=== PATIENT | female | born 1950 | race Caucasian/White ===

== ENCOUNTER 2022-12-17 22:53 | Inpatient (IN) | payer OTHER ==
[2022-12-17] MEDS ORDERED: Ipratropium/Albuterol 3 ML NEB NEB PRN (23:04)
[2022-12-17] MEDS ORDERED: Ondansetron PF 4 MG/2 ML Vial IVP PRN (23:16)
[2022-12-17] MEDS: Dextrose 5%-Lactated Ringers 1,000 ML IV SCH (23:49)
[2022-12-18] MEDS: Dextrose 5%-Lactated Ringers 1,000 ML IV SCH (00:47)
[2022-12-18] MEDS ORDERED: Lactated Ringer's 1,000 ML IV SCH (01:00)
[2022-12-18 04:15] LABS: ALT (SGPT) 14 U/L (8-55); AST (SGOT) 31 U/L (5-34); Albumin 3.5 g/dL (3.4-4.8); Alkaline Phosphatase 67 U/L (40-110); Anion Gap 16 mmol/L (10-20); BUN (Urea Nitrogen) 13 mg/dL (9.8-20.1); Bilirubin, Total 0.4 mg/dL (0.2-1.2); Calc. Creatinine Clearance 84 mL/min (70-130); Calcium 8.9 mg/dL (7.8-10.44); Carbon Dioxide 22 mmol/L (23-31); Chloride 104 mmol/L (98-107); Estimated GFR 95; Globulin 3.3 g/dL (2.4-3.5); Glucose 107 mg/dL (83-110); Potassium 3.7 mmol/L (3.5-5.1); Protein, Total 6.8 g/dL (5.8-8.1); Sodium 138 mmol/L (136-145)
[2022-12-18] MEDS ORDERED: Famotidine/PF 20 mg/2ml Vial SLOW IVP SCH (09:00)
[2022-12-18] MEDS: levETIRAcetam 500 MG/5 ML VIAL SLOW IVP SCH ×2 (09:07→20:24)
[2022-12-18] MEDS: Dexamethasone 4 mg/ml Vial SLOW IVP SCH ×3 (09:07→20:24)
[2022-12-18] MEDS: Famotidine 20 MG TAB PO SCH ×2 (09:08→20:24)
[2022-12-18] MEDS: Nicotine 14 MG PATCH TD SCH (11:16)
[2022-12-18] MEDS ORDERED: Magnevist 469MG/ML 20 ML VIAL ONE (12:13)
[2022-12-18] MEDS: Acetaminophen 325 MG TAB PO PRN (23:44)
[2022-12-19 06:28] LABS: #Lymphocytes 0.9 thou/uL (1.20-3.40); #Monocytes 0.4 thou/uL (0.11-0.59); #Neutrophils 7.2 thou/uL (1.40-6.50); %Basophils 0.1 % (0.0-1.0); %Eosinophils 0.2 % (0.0-10.0); %Lymphocytes 10.3 % (21.0-51.0); %Monocytes 4.9 % (0.0-10.0); %Neutrophils 84.6 % (42.0-75.0); Hemoglobin 13.5 g/dL (12.0-16.0); Mean Corpuscular HGB CONC 33.3 g/dL (32.0-36.0); Mean Corpuscular Hemoglobin 31.6 pg (27.0-31.0); Mean Corpuscular Volume 94.8 fl (78.0-98.0); Platelet Count 339 10x3/uL (130-400); RBC Distribution Width 11.9 % (11.5-14.5); Red Blood Cell (RBC) Count 4.26 mill/uL (4.20-5.40); White Blood Cell (WBC) Count 8.6 10x3/uL (4.8-10.8)
[2022-12-19 07:16] LABS: Anion Gap 12 mmol/L (10-20); BUN (Urea Nitrogen) 16 mg/dL (9.8-20.1); CK (CPK) 225 U/L (29-168); Calc. Creatinine Clearance 77 mL/min (70-130); Calcium 8.8 mg/dL (7.8-10.44); Carbon Dioxide 25 mmol/L (23-31); Chloride 106 mmol/L (98-107); Estimated GFR 93; Glucose 102 mg/dL (83-110); Potassium 3.7 mmol/L (3.5-5.1); Sodium 139 mmol/L (136-145)
[2022-12-19] MEDS: Dexamethasone 4 mg/ml Vial SLOW IVP SCH ×3 (08:58→21:31)
[2022-12-19] MEDS: Famotidine 20 MG TAB PO SCH ×2 (08:58→21:31)
[2022-12-19] MEDS: levETIRAcetam 500 MG/5 ML VIAL SLOW IVP SCH ×2 (08:59→21:32)
[2022-12-19] MEDS: Nicotine 14 MG PATCH TD SCH (10:52)
[2022-12-20 04:28] LABS: #Lymphocytes 0.8 thou/uL (1.20-3.40); #Monocytes 0.2 thou/uL (0.11-0.59); %Basophils 0.1 % (0.0-1.0); %Eosinophils 0.1 % (0.0-10.0); %Lymphocytes 10.2 % (21.0-51.0); %Monocytes 2.5 % (0.0-10.0); %Neutrophils 87.1 % (42.0-75.0); Hemoglobin 14.7 g/dL (12.0-16.0); Mean Corpuscular HGB CONC 33.6 g/dL (32.0-36.0); Mean Corpuscular Hemoglobin 31.8 pg (27.0-31.0); Mean Corpuscular Volume 94.7 fl (78.0-98.0); Mean Platelet Volume 7.4 fL (7.4-10.4); Platelet Count 322 10x3/uL (130-400); Red Blood Cell (RBC) Count 4.61 mill/uL (4.20-5.40)
[2022-12-20] MEDS: Famotidine 20 MG TAB PO SCH ×2 (09:34→22:11)
[2022-12-20] MEDS: Dexamethasone 4 mg/ml Vial SLOW IVP SCH ×3 (09:34→22:12)
[2022-12-20] MEDS: levETIRAcetam 500 MG/5 ML VIAL SLOW IVP SCH ×2 (09:34→22:12)
[2022-12-20] MEDS: Nicotine 14 MG PATCH TD SCH (09:35)
[2022-12-21 06:11] LABS: #Lymphocytes 0.7 thou/uL (1.20-3.40); #Monocytes 0.5 thou/uL (0.11-0.59); #Neutrophils 6.6 thou/uL (1.40-6.50); %Basophils 0.2 % (0.0-1.0); %Eosinophils 0.2 % (0.0-10.0); %Lymphocytes 9.3 % (21.0-51.0); %Monocytes 6.1 % (0.0-10.0); %Neutrophils 84.2 % (42.0-75.0); Hemoglobin 14.3 g/dL (12.0-16.0); Mean Corpuscular HGB CONC 32.9 g/dL (32.0-36.0); Mean Corpuscular Hemoglobin 31.2 pg (27.0-31.0); Mean Corpuscular Volume 94.8 fl (78.0-98.0); Platelet Count 329 10x3/uL (130-400); Red Blood Cell (RBC) Count 4.58 mill/uL (4.20-5.40); White Blood Cell (WBC) Count 7.9 10x3/uL (4.8-10.8)
[2022-12-21] MEDS: Senokot S 8.6-50 MG TAB PO PRN (06:18)
[2022-12-21] MEDS: levETIRAcetam 500 MG/5 ML VIAL SLOW IVP SCH ×2 (08:57→20:47)
[2022-12-21] MEDS: Famotidine 20 MG TAB PO SCH ×2 (08:57→20:47)
[2022-12-21] MEDS: Dexamethasone 4 mg/ml Vial SLOW IVP SCH ×3 (08:57→20:47)
[2022-12-21] MEDS: Nicotine 14 MG PATCH TD SCH (10:47)
[2022-12-22] MEDS: Calcium Carbonate 500 MG ChewTAB PO PRN (00:18)
[2022-12-22] MEDS: Melatonin 3 MG TAB PO PRN (00:18)
[2022-12-22] MEDS: Acetaminophen 325 MG TAB PO PRN (03:02)
[2022-12-22 08:42] LABS: #Lymphocytes 1.2 thou/uL (1.20-3.40); #Monocytes 0.5 thou/uL (0.11-0.59); #Neutrophils 6.7 thou/uL (1.40-6.50); %Basophils 0.5 % (0.0-1.0); %Eosinophils 0.1 % (0.0-10.0); %Lymphocytes 14.4 % (21.0-51.0); %Monocytes 6.1 % (0.0-10.0); %Neutrophils 78.9 % (42.0-75.0); Hemoglobin 14.1 g/dL (12.0-16.0); Mean Corpuscular HGB CONC 33.4 g/dL (32.0-36.0); Mean Corpuscular Hemoglobin 31.8 pg (27.0-31.0); Mean Platelet Volume 7.6 fL (7.4-10.4); Platelet Count 295 10x3/uL (130-400); Red Blood Cell (RBC) Count 4.44 mill/uL (4.20-5.40); White Blood Cell (WBC) Count 8.5 10x3/uL (4.8-10.8)
[2022-12-22 09:03] LABS: Anion Gap 11 mmol/L (10-20); BUN (Urea Nitrogen) 23 mg/dL (9.8-20.1); Calc. Creatinine Clearance 72 mL/min (70-130); Calcium 8.8 mg/dL (7.8-10.44); Carbon Dioxide 26 mmol/L (23-31); Chloride 105 mmol/L (98-107); Estimated GFR 92; Glucose 95 mg/dL (83-110); Potassium 3.9 mmol/L (3.5-5.1); Sodium 138 mmol/L (136-145)
[2022-12-22] MEDS ORDERED: Promethazine HCl 25 MG/ML VIAL IM PRN (10:31)
[2022-12-22] MEDS ORDERED: Ondansetron HCl/PF 4 MG/2 ML Vial IVP PRN (10:31)
[2022-12-22] MEDS ORDERED: fentaNYL PF 100 MCG/2 ML SYRINGE ONE (10:45)
[2022-12-22] MEDS ORDERED: Famotidine/PF 20 mg/2ml Vial ONE (10:45)
[2022-12-22] MEDS: Dexamethasone 4 mg/ml Vial SLOW IVP SCH ×3 (11:26→20:06)
[2022-12-22] MEDS: levETIRAcetam 500 MG/5 ML VIAL SLOW IVP SCH ×2 (11:26→20:05)
[2022-12-22] MEDS ORDERED: PROPOFOL 200 MG/20 ML VIAL ONE (11:37)
[2022-12-22] MEDS ORDERED: Lidocaine 1% PF 5 ML VIAL ONE (11:37)
[2022-12-22] MEDS ORDERED: Ondansetron PF 4 MG/2 ML Vial ONE (11:37)
[2022-12-22] MEDS ORDERED: Succinylcholine Chloride 100 MG/5 ML SYRINGE FS ONE (11:37)
[2022-12-22] MEDS ORDERED: PHENYLEPHRINE-NS 100 MCG/ML 10 ML SYRINGE ONE (11:37)
[2022-12-22] MEDS ORDERED: Tranexamic Acid 1,000 MG/10 ML VIAL ONE (11:49)
[2022-12-22] MEDS ORDERED: Morphine 4 MG/ML VIAL ONE (13:11)
[2022-12-22] MEDS ORDERED: Propofol 1,000 MG/100 ML VIAL IV ONE (13:11)
[2022-12-22] MEDS: Propofol 1,000 MG/100 ML VIAL IV PRN ×2 (13:15→20:12)
[2022-12-22] MEDS: Morphine 4 MG/ML VIAL SLOW IVP PRN (13:15)
[2022-12-22] MEDS ORDERED: Fentanyl BOLUS 250 ML IVPB PRN (13:30)
[2022-12-22] MEDS ORDERED: Ventilator Sedation Protocol 1 EACH FS SCH (13:30)
[2022-12-22] MEDS ORDERED: DISCONTINUE PREVIOUS NARCOTIC PAIN MEDICATIONS AND BENZODIAZEPINES FS SCH (13:30)
[2022-12-22] MEDS ORDERED: Propofol BOLUS 1,000 MG/100 ML VIAL IV PRN (13:30)
[2022-12-22] MEDS ORDERED: Lorazepam 2 MG/ML VIAL SLOW IVP PRN (13:30)
[2022-12-22] MEDS ORDERED: Fentanyl CADD 100 ML IV SCH (13:30)
[2022-12-22 14:32] LABS: Actual Bicarbonate (HCO3a) 27.8 mEq/L (22-28); Base Excess (BEa) 2.3 mEq/L (-2.0 to +3.0); CO2 Tension 46.3 mmHg (35.0-45.0); Calcium, Ionized (arterial) 1.18 mmol/L (1.12-1.30); Carboxyhemoglobin (COHb) 0.7 gm% (0.0-3.0); Hemoglobin (Hb) 15.2 g/dL (12.0-16.0); O2 Tension (PaO2), arterial 158.8 mmHg (> 70.0); Potassium - ABG Lab 4.22 mmol/L (3.70-5.30)
[2022-12-22 14:33] LABS: ALV-art Gradient 139.825 mmHg (0-20); Puncture Site LBA
[2022-12-22] MEDS: Famotidine 20 MG TAB PO SCH ×2 (15:42→19:28)
[2022-12-22] MEDS: Nicotine 14 MG PATCH TD SCH (15:52)
[2022-12-22] MEDS: Bacitracin 1 PK TOP SCH ×2 (15:52→20:06)
[2022-12-23 07:50] LABS: #Lymphocytes 1.2 thou/uL (1.20-3.40); #Monocytes 0.6 thou/uL (0.11-0.59); #Neutrophils 8.4 thou/uL (1.40-6.50); %Basophils 0.2 % (0.0-1.0); %Eosinophils 0.2 % (0.0-10.0); %Lymphocytes 11.8 % (21.0-51.0); %Monocytes 5.8 % (0.0-10.0); Mean Corpuscular HGB CONC 31.2 g/dL (32.0-36.0); Mean Corpuscular Hemoglobin 30.2 pg (27.0-31.0); Mean Corpuscular Volume 96.7 fl (78.0-98.0); Mean Platelet Volume 7.4 fL (7.4-10.4); Platelet Count 300 10x3/uL (130-400); RBC Distribution Width 12.1 % (11.5-14.5); Red Blood Cell (RBC) Count 4.63 mill/uL (4.20-5.40); White Blood Cell (WBC) Count 10.3 10x3/uL (4.8-10.8)
[2022-12-23 08:05] LABS: ALT (SGPT) 27 U/L (8-55); AST (SGOT) 13 U/L (5-34); Albumin 3.3 g/dL (3.4-4.8); Alkaline Phosphatase 58 U/L (40-110); Anion Gap 14 mmol/L (10-20); BUN (Urea Nitrogen) 21 mg/dL (9.8-20.1); Bilirubin, Total 0.4 mg/dL (0.2-1.2); Calc. Creatinine Clearance 0 mL/min (70-130); Calcium 8.9 mg/dL (7.8-10.44); Carbon Dioxide 26 mmol/L (23-31); Chloride 102 mmol/L (98-107); Estimated GFR 92; Globulin 2.9 g/dL (2.4-3.5); Glucose 96 mg/dL (83-110); Potassium 4.2 mmol/L (3.5-5.1); Protein, Total 6.2 g/dL (5.8-8.1); Sodium 138 mmol/L (136-145)
[2022-12-23] MEDS: Bacitracin 1 PK TOP SCH ×3 (08:28→21:17)
[2022-12-23] MEDS: Famotidine 20 MG TAB PO SCH ×2 (08:28→21:12)
[2022-12-23] MEDS: levETIRAcetam 500 MG/5 ML VIAL SLOW IVP SCH ×2 (08:29→21:17)
[2022-12-23] MEDS: Dexamethasone 4 mg/ml Vial SLOW IVP SCH ×3 (08:30→21:18)
[2022-12-23] MEDS: Nicotine 14 MG PATCH TD SCH (12:30)
[2022-12-23] MEDS ORDERED: Metoprolol Tartrate 5 MG/5 ML VIAL IVP PRN (12:56)
[2022-12-23] MEDS ORDERED: hydrALAZINE 20 MG/ML VIAL SLOW IVP PRN (13:00)
[2022-12-23] MEDS ORDERED: Lactated Ringer's 1,000 ML IV SCH (13:00)
[2022-12-23] MEDS: Morphine 4 MG/ML VIAL SLOW IVP PRN ×2 (13:03→21:20)
[2022-12-23 14:41] LABS: Actual Bicarbonate (HCO3v) 25 mEq/L (22-28); Base Excess 1.3 mEq/L (-2.0 to +3.0); Calcium, Ionized (venous) 1.05 mmol/L (1.16-1.32); Chloride (VBG) 106 mmol/L (98-106); Hemoglobin (Hb) 15.4 g/dL (11.7-16.1); Potassium (VBG) 3.68 mmol/L (3.70-5.30); Sodium 138.7 mmol/L (133-146); pH (venous) 7.46 (7.32-7.43)
[2022-12-23 14:47] LABS: Hemoglobin 14.8 g/dL (12.0-16.0); Mean Corpuscular HGB CONC 33.6 g/dL (32.0-36.0); Mean Corpuscular Hemoglobin 31.9 pg (27.0-31.0); Mean Corpuscular Volume 95.1 fl (78.0-98.0); Mean Platelet Volume 7.4 fL (7.4-10.4); Platelet Count 241 10x3/uL (130-400); RBC Distribution Width 12.2 % (11.5-14.5); Red Blood Cell (RBC) Count 4.64 mill/uL (4.20-5.40); White Blood Cell (WBC) Count 11.4 10x3/uL (4.8-10.8)
[2022-12-23 15:07] LABS: Band 7 % (5-11); Lymphocytes 1 % (21-51); MDiff Complete? YES; Monocytes 3 % (0-10); Neutrophil 89 % (42-75); Platelet Morphology Comment Appears Adequate; RBC Morphology Normal
[2022-12-23 15:18] LABS: Anion Gap 15 mmol/L (10-20); BUN (Urea Nitrogen) 20 mg/dL (9.8-20.1); Calc. Creatinine Clearance 0 mL/min (70-130); Calcium 8.2 mg/dL (7.8-10.44); Carbon Dioxide 21 mmol/L (23-31); Chloride 107 mmol/L (98-107); Estimated GFR 95; Glucose 88 mg/dL (83-110); Potassium 3.7 mmol/L (3.5-5.1); Sodium 139 mmol/L (136-145)
[2022-12-23] MEDS ORDERED: Labetalol HCl 100 MG/20 ML VIAL SLOW IVP PRN (15:44)
[2022-12-23] MEDS: Ketorolac Tromethamine 30 MG/ML VIAL IVP PRN (19:30)
[2022-12-23] MEDS: Ipratropium/Albuterol 3 ML NEB IPPB SCH ×2 (19:35→22:50)
[2022-12-24] MEDS: Morphine 4 MG/ML VIAL SLOW IVP PRN (00:22)
[2022-12-24 04:13] LABS: Hemoglobin 13.7 g/dL (12.0-16.0); Mean Corpuscular HGB CONC 32.2 g/dL (32.0-36.0); Mean Corpuscular Hemoglobin 30.8 pg (27.0-31.0); Mean Corpuscular Volume 95.6 fl (78.0-98.0); Mean Platelet Volume 7.6 fL (7.4-10.4); Platelet Count 216 10x3/uL (130-400); RBC Distribution Width 12.4 % (11.5-14.5); Red Blood Cell (RBC) Count 4.46 mill/uL (4.20-5.40); White Blood Cell (WBC) Count 22.2 10x3/uL (4.8-10.8)
[2022-12-24 04:45] LABS: Anion Gap 15 mmol/L (10-20); BUN (Urea Nitrogen) 22 mg/dL (9.8-20.1); Calc. Creatinine Clearance 0 mL/min (70-130); Calcium 8.8 mg/dL (7.8-10.44); Carbon Dioxide 27 mmol/L (23-31); Chloride 103 mmol/L (98-107); Estimated GFR 86; Glucose 103 mg/dL (83-110); Potassium 4.1 mmol/L (3.5-5.1); Sodium 141 mmol/L (136-145)
[2022-12-24 04:54] LABS: Band 11 % (5-11); Lymphocytes 6 % (21-51); MDiff Complete? YES; Monocytes 2 % (0-10); Myelocyte 1 % (0-0); Neutrophil 80 % (42-75); Platelet Morphology Comment Appears Adequate; RBC Morphology Normal
[2022-12-24] MEDS: Ketorolac Tromethamine 30 MG/ML VIAL IVP PRN (06:14)
[2022-12-24] MEDS: Ipratropium/Albuterol 3 ML NEB IPPB SCH ×4 (07:37→23:41)
[2022-12-24] MEDS: levETIRAcetam 500 MG/5 ML VIAL SLOW IVP SCH ×2 (09:01→20:09)
[2022-12-24] MEDS: Famotidine 20 MG TAB PO SCH ×2 (09:01→20:10)
[2022-12-24] MEDS: Senokot S 8.6-50 MG TAB PO PRN (09:02)
[2022-12-24] MEDS: Sodium Chloride 0.45% 1,000 ML IV SCH ×2 (09:03→21:43)
[2022-12-24] MEDS ORDERED: Polyethylene Glycol 3350 17 GM Packet PO PRN (11:00)
[2022-12-24] MEDS ORDERED: Polyethylene Glycol 3350 17 GM Packet PO SCH (11:15)
[2022-12-24] MEDS: Nicotine 14 MG PATCH TD SCH (11:34)
[2022-12-24] MEDS: traMADol HCl 50 MG TAB PO PRN (11:34)
[2022-12-24] MEDS: Dexamethasone 4 mg/ml Vial SLOW IVP SCH ×3 (11:36→23:14)
[2022-12-24] MEDS: Bacitracin 1 PK TOP SCH ×3 (11:37→20:08)
[2022-12-24] MEDS ORDERED: Adenosine 6 MG/2 ML VIAL ONE (12:09)
[2022-12-24] MEDS ORDERED: Diltiazem 125 MG in Sodium Chloride 0.9% 100 ML IVPB SCH (12:15)
[2022-12-24] MEDS ORDERED: Digoxin 0.5 MG/2 ML AMP SLOW IVP SCH ×3 (12:30→15:30)
[2022-12-24] MEDS ORDERED: Adenosine 6 MG/2 ML VIAL IVP SCH (12:30)
[2022-12-24 15:32] LABS: Magnesium 1.9 mg/dL (1.6-2.6); Phosphorus 1.7 mg/dL (2.3-4.7)
[2022-12-24] MEDS: Acetaminophen 325 MG TAB PO PRN (18:07)
[2022-12-24] MEDS: Digoxin 0.5 MG/2 ML AMP SLOW IVP SCH (20:08)
[2022-12-24] MEDS: Senokot S 8.6-50 MG TAB PO SCH (20:09)
[2022-12-25] MEDS: Digoxin 0.5 MG/2 ML AMP SLOW IVP SCH (02:23)
[2022-12-25 04:53] LABS: Hemoglobin 12.6 g/dL (12.0-16.0); Mean Corpuscular HGB CONC 33.7 g/dL (32.0-36.0); Mean Corpuscular Hemoglobin 32.1 pg (27.0-31.0); Mean Corpuscular Volume 95.4 fl (78.0-98.0); Mean Platelet Volume 7.7 fL (7.4-10.4); Platelet Count 191 10x3/uL (130-400); RBC Distribution Width 12.1 % (11.5-14.5); Red Blood Cell (RBC) Count 3.94 mill/uL (4.20-5.40); White Blood Cell (WBC) Count 18.8 10x3/uL (4.8-10.8)
[2022-12-25] MEDS: Dexamethasone 4 mg/ml Vial SLOW IVP SCH ×3 (05:04→18:22)
[2022-12-25 05:14] LABS: Digoxin 1.41 ng/mL (0.8-2.0)
[2022-12-25 05:26] LABS: ALT (SGPT) 14 U/L (8-55); AST (SGOT) 12 U/L (5-34); Albumin 2.8 g/dL (3.4-4.8); Alkaline Phosphatase 82 U/L (40-110); Anion Gap 12 mmol/L (10-20); BUN (Urea Nitrogen) 13 mg/dL (9.8-20.1); Bilirubin, Total 0.3 mg/dL (0.2-1.2); Calc. Creatinine Clearance 89 mL/min (70-130); Calcium 8.3 mg/dL (7.8-10.44); Carbon Dioxide 21 mmol/L (23-31); Chloride 107 mmol/L (98-107); Estimated GFR 96; Globulin 2.5 g/dL (2.4-3.5); Glucose 133 mg/dL (83-110); Magnesium 2.2 mg/dL (1.6-2.6); Phosphorus 2.2 mg/dL (2.3-4.7); Potassium 4.1 mmol/L (3.5-5.1); Protein, Total 5.3 g/dL (5.8-8.1); Sodium 136 mmol/L (136-145)
[2022-12-25 05:37] LABS: Band 16 % (5-11); Lymphocytes 1 % (21-51); MDiff Complete? YES; Monocytes 3 % (0-10); Neutrophil 80 % (42-75)
[2022-12-25] MEDS: Ipratropium/Albuterol 3 ML NEB IPPB SCH ×4 (07:45→23:59)
[2022-12-25] MEDS: levETIRAcetam 500 MG/5 ML VIAL SLOW IVP SCH ×2 (09:12→20:31)
[2022-12-25] MEDS: Senokot S 8.6-50 MG TAB PO SCH ×2 (09:14→20:31)
[2022-12-25] MEDS: Polyethylene Glycol 3350 17 GM Packet PO SCH (09:14)
[2022-12-25] MEDS: Bacitracin 1 PK TOP SCH ×3 (09:14→20:31)
[2022-12-25] MEDS: Famotidine 20 MG TAB PO SCH ×2 (09:14→20:31)
[2022-12-25] MEDS: Nicotine 14 MG PATCH TD SCH (11:48)
[2022-12-25] MEDS: Sodium Chloride 0.45% 1,000 ML IV SCH (11:49)
[2022-12-26] MEDS: Dexamethasone 4 mg/ml Vial SLOW IVP SCH ×4 (00:26→17:25)
[2022-12-26] MEDS: Melatonin 3 MG TAB PO PRN (02:09)
[2022-12-26 04:34] LABS: ALT (SGPT) 13 U/L (8-55); AST (SGOT) 10 U/L (5-34); Alkaline Phosphatase 71 U/L (40-110); Anion Gap 11 mmol/L (10-20); BUN (Urea Nitrogen) 11 mg/dL (9.8-20.1); Bilirubin, Total 0.3 mg/dL (0.2-1.2); Calc. Creatinine Clearance 92 mL/min (70-130); Calcium 8.7 mg/dL (7.8-10.44); Carbon Dioxide 24 mmol/L (23-31); Chloride 107 mmol/L (98-107); Estimated GFR 96; Globulin 2.8 g/dL (2.4-3.5); Glucose 139 mg/dL (83-110); Phosphorus 1.7 mg/dL (2.3-4.7); Potassium 3.9 mmol/L (3.5-5.1); Protein, Total 5.8 g/dL (5.8-8.1); Sodium 138 mmol/L (136-145)
[2022-12-26 04:51] LABS: Band 38 % (5-11); Hemoglobin 12.7 g/dL (12.0-16.0); MDiff Complete? YES; Mean Corpuscular Hemoglobin 31.1 pg (27.0-31.0); Mean Corpuscular Volume 94.5 fl (78.0-98.0); Mean Platelet Volume 8.2 fL (7.4-10.4); Neutrophil 61 % (42-75); Platelet Count 194 10x3/uL (130-400); Platelet Morphology Comment Appears Adequate; RBC Distribution Width 12.2 % (11.5-14.5); RBC Morphology Normal; Reactive Lymphocytes 1 % (0-10); Red Blood Cell (RBC) Count 4.06 mill/uL (4.20-5.40); White Blood Cell (WBC) Count 18.6 10x3/uL (4.8-10.8)
[2022-12-26] MEDS: Sodium Chloride 0.45% 1,000 ML IV SCH ×2 (05:23→15:31)
[2022-12-26] MEDS: Ipratropium/Albuterol 3 ML NEB IPPB SCH ×3 (08:05→20:15)
[2022-12-26] MEDS: Senokot S 8.6-50 MG TAB PO SCH ×2 (09:34→20:32)
[2022-12-26] MEDS: levETIRAcetam 500 MG/5 ML VIAL SLOW IVP SCH ×2 (09:34→20:39)
[2022-12-26] MEDS: Polyethylene Glycol 3350 17 GM Packet PO SCH (09:35)
[2022-12-26] MEDS: Famotidine 20 MG TAB PO SCH ×2 (09:35→20:31)
[2022-12-26] MEDS: Bacitracin 1 PK TOP SCH ×3 (09:35→20:36)
[2022-12-26] MEDS: Digoxin 0.125 MG TAB PO SCH (09:38)
[2022-12-26] MEDS: Nicotine 14 MG PATCH TD SCH (09:39)
[2022-12-26 13:16] LABS: Fungus Stain Final report (.)
[2022-12-26] MEDS: Calcium Carbonate 500 MG ChewTAB PO PRN (18:53)
[2022-12-27] MEDS: Dexamethasone 4 mg/ml Vial SLOW IVP SCH ×5 (00:02→23:07)
[2022-12-27] MEDS: Ipratropium/Albuterol 3 ML NEB IPPB SCH ×4 (01:21→18:30)
[2022-12-27] MEDS: Polyethylene Glycol 3350 17 GM Packet PO SCH (09:04)
[2022-12-27] MEDS: Digoxin 0.125 MG TAB PO SCH (09:05)
[2022-12-27] MEDS: Famotidine 20 MG TAB PO SCH ×2 (09:05→20:29)
[2022-12-27] MEDS: Bacitracin 1 PK TOP SCH ×3 (09:07→20:29)
[2022-12-27] MEDS: levETIRAcetam 500 MG/5 ML VIAL SLOW IVP SCH ×2 (09:08→20:29)
[2022-12-27] MEDS: Senokot S 8.6-50 MG TAB PO SCH ×2 (09:08→20:29)
[2022-12-27] MEDS: Sodium Chloride 0.45% 1,000 ML IV SCH (09:22)
[2022-12-27 10:56] LABS: Hemoglobin 13.8 g/dL (12.0-16.0); Large Platelets SLIGHT; Lymphocytes 5 % (21-51); MDiff Complete? YES; Mean Corpuscular HGB CONC 32.7 g/dL (32.0-36.0); Mean Corpuscular Hemoglobin 31.2 pg (27.0-31.0); Mean Corpuscular Volume 95.3 fl (78.0-98.0); Mean Platelet Volume 8.1 fL (7.4-10.4); Neutrophil 95 % (42-75); Platelet Count 229 10x3/uL (130-400); Platelet Morphology Comment Appears Adequate; Polychromasia SLIGHT = 2-3 cells (100X) (0-2/hpf); RBC Distribution Width 12.4 % (11.5-14.5); Red Blood Cell (RBC) Count 4.43 mill/uL (4.20-5.40); Vacuoles SLIGHT; White Blood Cell (WBC) Count 15.2 10x3/uL (4.8-10.8)
[2022-12-27] MEDS: Nicotine 14 MG PATCH TD SCH (12:24)
[2022-12-27] MEDS: Ketorolac Tromethamine 30 MG/ML VIAL IVP PRN (12:24)
[2022-12-27] MEDS: Calcium Carbonate 500 MG ChewTAB PO PRN ×2 (12:34→23:07)
[2022-12-27 13:49] LABS: #Lymphocytes 0.6 thou/uL (1.20-3.40); #Monocytes 0.9 thou/uL (0.11-0.59); #Neutrophils 15.2 thou/uL (1.40-6.50); %Basophils 0.1 % (0.0-1.0); %Lymphocytes 3.3 % (21.0-51.0); %Monocytes 5.5 % (0.0-10.0); Hemoglobin 13.2 g/dL (12.0-16.0); Mean Corpuscular HGB CONC 33.1 g/dL (32.0-36.0); Mean Corpuscular Hemoglobin 31.6 pg (27.0-31.0); Mean Corpuscular Volume 95.5 fl (78.0-98.0); Mean Platelet Volume 8.4 fL (7.4-10.4); Platelet Count 218 10x3/uL (130-400); RBC Distribution Width 12.3 % (11.5-14.5); Red Blood Cell (RBC) Count 4.19 mill/uL (4.20-5.40); White Blood Cell (WBC) Count 16.7 10x3/uL (4.8-10.8)
[2022-12-27 14:02] LABS: Anion Gap 15 mmol/L (10-20); BUN (Urea Nitrogen) 13 mg/dL (9.8-20.1); Calc. Creatinine Clearance 82 mL/min (70-130); Carbon Dioxide 25 mmol/L (23-31); Chloride 105 mmol/L (98-107); Estimated GFR 94; Glucose 107 mg/dL (83-110); Potassium 3.8 mmol/L (3.5-5.1); Sodium 141 mmol/L (136-145)
[2022-12-28] MEDS: Ipratropium/Albuterol 3 ML NEB IPPB SCH ×4 (01:00→19:18)
[2022-12-28] MEDS: Sodium Chloride 0.45% 1,000 ML IV SCH ×3 (02:44→21:56)
[2022-12-28] MEDS: Dexamethasone 4 mg/ml Vial SLOW IVP SCH ×4 (05:52→23:27)
[2022-12-28] MEDS: Senokot S 8.6-50 MG TAB PO SCH ×2 (09:51→21:57)
[2022-12-28] MEDS: Polyethylene Glycol 3350 17 GM Packet PO SCH (09:51)
[2022-12-28] MEDS: Digoxin 0.125 MG TAB PO SCH (09:52)
[2022-12-28] MEDS: Famotidine 20 MG TAB PO SCH ×2 (09:52→21:33)
[2022-12-28] MEDS: Bacitracin 1 PK TOP SCH ×3 (09:54→21:33)
[2022-12-28] MEDS: levETIRAcetam 500 MG/5 ML VIAL SLOW IVP SCH ×2 (09:56→21:34)
[2022-12-28] MEDS: Nicotine 14 MG PATCH TD SCH (12:28)
[2022-12-28 12:48] LABS: Hemoglobin 13.2 g/dL (12.0-16.0); Mean Corpuscular HGB CONC 31.8 g/dL (32.0-36.0); Mean Corpuscular Hemoglobin 30.4 pg (27.0-31.0); Mean Corpuscular Volume 95.7 fl (78.0-98.0); Mean Platelet Volume 8.1 fL (7.4-10.4); Platelet Count 239 10x3/uL (130-400); RBC Distribution Width 12.3 % (11.5-14.5); Red Blood Cell (RBC) Count 4.35 mill/uL (4.20-5.40)
[2022-12-28 13:03] LABS: Anion Gap 14 mmol/L (10-20); BUN (Urea Nitrogen) 12 mg/dL (9.8-20.1); Calc. Creatinine Clearance 94 mL/min (70-130); Calcium 8.8 mg/dL (7.8-10.44); Carbon Dioxide 23 mmol/L (23-31); Chloride 105 mmol/L (98-107); Estimated GFR 97; Glucose 129 mg/dL (83-110); Sodium 138 mmol/L (136-145)
[2022-12-28 13:06] LABS: Band 10 % (5-11); Lymphocytes 7 % (21-51); MDiff Complete? YES; Monocytes 2 % (0-10); Neutrophil 81 % (42-75); Platelet Morphology Comment Appears Adequate; RBC Morphology Normal; Toxic Granulation SLIGHT
[2022-12-28] MEDS: Ketorolac Tromethamine 30 MG/ML VIAL IVP PRN (16:17)
[2022-12-29] MEDS: Ipratropium/Albuterol 3 ML NEB IPPB SCH ×5 (01:15→23:26)
[2022-12-29] MEDS: Dexamethasone 4 mg/ml Vial SLOW IVP SCH (05:22)
[2022-12-29] MEDS: Sodium Chloride 0.45% 1,000 ML IV SCH ×2 (05:26→22:33)
[2022-12-29] MEDS ORDERED: EPINEPHrine 1 MG/ML AMP ONE (06:57)
[2022-12-29] MEDS ORDERED: Thrombin 5000 UNITS/5 ML VIAL ONE (06:57)
[2022-12-29] MEDS ORDERED: Lidocaine 1% (PF) 30 ML VIAL ONE (06:57)
[2022-12-29] MEDS ORDERED: Bacitracin Zinc Ointment 30 gm TUBE ONE (06:57)
[2022-12-29] MEDS ORDERED: Famotidine/PF 20 mg/2ml Vial ONE (06:58)
[2022-12-29] MEDS ORDERED: Phenylephrine 10 MG/ML VIAL ONE (07:06)
[2022-12-29] MEDS ORDERED: Lidocaine 1% PF 5 ML VIAL ONE ×2 (07:17→07:20)
[2022-12-29] MEDS ORDERED: ePHEDrine 50 MG/ML VIAL ONE (07:20)
[2022-12-29] MEDS ORDERED: Fentanyl 100 MCG/2 ML VIAL ONE (07:20)
[2022-12-29] MEDS ORDERED: PROPOFOL 200 MG/20 ML VIAL ONE (07:20)
[2022-12-29] MEDS ORDERED: Ondansetron PF 4 MG/2 ML Vial ONE (07:20)
[2022-12-29] MEDS ORDERED: Dexamethasone 20 MG/5 ML VIAL ONE (07:20)
[2022-12-29] MEDS ORDERED: PHENYLEPHRINE-NS 100 MCG/ML 10 ML SYRINGE ONE (07:20)
[2022-12-29] MEDS ORDERED: Rocuronium Bromide 10 MG/ML (10ML VIAL) ONE (07:20)
[2022-12-29] MEDS ORDERED: CEFAZOLIN 2 GM VIAL ONE (07:25)
[2022-12-29] MEDS ORDERED: Sodium Chloride 0.9% 100 ML ONE (07:29)
[2022-12-29] MEDS ORDERED: MINERAL OIL/WHITE PETROLATUM 3.5 GM TUBE ONE (08:17)
[2022-12-29] MEDS ORDERED: fentaNYL PF 100 MCG/2 ML SYRINGE ONE ×2 (08:25→09:21)
[2022-12-29] MEDS ORDERED: manNITOL 20% 500 ML ONE (08:41)
[2022-12-29] MEDS ORDERED: Promethazine HCl 25 MG/ML VIAL IM PRN (09:42)
[2022-12-29] MEDS ORDERED: PACU-Morphine 4MG/ML VIAL SLOW IVP PRN (09:42)
[2022-12-29] MEDS ORDERED: SUGAMMADEX SODIUM 200 MG/2 ML VIAL ONE (09:57)
[2022-12-29] MEDS: Digoxin 0.125 MG TAB PO SCH (14:26)
[2022-12-29] MEDS: Bacitracin 1 PK TOP SCH ×3 (14:26→19:30)
[2022-12-29] MEDS: Famotidine 20 MG TAB PO SCH (14:27)
[2022-12-29] MEDS: Senokot S 8.6-50 MG TAB PO SCH ×2 (14:27→19:31)
[2022-12-29] MEDS: Polyethylene Glycol 3350 17 GM Packet PO SCH (14:27)
[2022-12-29] MEDS: Nicotine 14 MG PATCH TD SCH (14:28)
[2022-12-29] MEDS: Sodium Chloride 0.9% 1,000 ML IV SCH (14:28)
[2022-12-29] MEDS ORDERED: Electrolyte Replacement Protocol FS SCH (14:45)
[2022-12-29] MEDS: levETIRAcetam 500 MG/5 ML VIAL SLOW IVP SCH (14:55)
[2022-12-29] MEDS: CEFAZOLIN 2 GM in Sodium Chloride 0.9% 100 ML IVPB SCH ×4 (15:44→22:35)
[2022-12-29] MEDS: Dexamethasone 4 MG TAB PO SCH (15:49)
[2022-12-29] MEDS: Phenytoin Extended Release 100 MG CAP PO SCH (19:30)
[2022-12-29] MEDS: Melatonin 3 MG TAB PO PRN (19:31)
[2022-12-29] MEDS: Acetaminophen 325 MG TAB PO PRN (19:32)
[2022-12-29] MEDS: Calcium Carbonate 500 MG ChewTAB PO PRN (22:31)
[2022-12-30] MEDS: Sodium Chloride 0.9% 1,000 ML IV SCH ×3 (00:51→23:24)
[2022-12-30 04:28] LABS: ALT (SGPT) 14 U/L (8-55); AST (SGOT) 13 U/L (5-34); Albumin 2.3 g/dL (3.4-4.8); Alkaline Phosphatase 60 U/L (40-110); Anion Gap 10 mmol/L (10-20); BUN (Urea Nitrogen) 11 mg/dL (9.8-20.1); Bilirubin, Total 0.3 mg/dL (0.2-1.2); Calc. Creatinine Clearance 96 mL/min (70-130); Carbon Dioxide 23 mmol/L (23-31); Chloride 107 mmol/L (98-107); Estimated GFR 98; Globulin 2.7 g/dL (2.4-3.5); Glucose 112 mg/dL (83-110); Phosphorus 2.4 mg/dL (2.3-4.7); Potassium 4.1 mmol/L (3.5-5.1); Sodium 136 mmol/L (136-145)
[2022-12-30 04:36] LABS: Band 18 % (5-11); Hemoglobin 12.8 g/dL (12.0-16.0); Lymphocytes 5 % (21-51); MDiff Complete? YES; Mean Corpuscular HGB CONC 32.7 g/dL (32.0-36.0); Mean Corpuscular Hemoglobin 31.9 pg (27.0-31.0); Mean Corpuscular Volume 97.5 fl (78.0-98.0); Mean Platelet Volume 8.2 fL (7.4-10.4); Monocytes 2 % (0-10); Neutrophil 75 % (42-75); Platelet Count 204 10x3/uL (130-400); Platelet Morphology Comment Appears Adequate; RBC Distribution Width 12.8 % (11.5-14.5); RBC Morphology Normal; Red Blood Cell (RBC) Count 4.03 mill/uL (4.20-5.40); White Blood Cell (WBC) Count 16.3 10x3/uL (4.8-10.8)
[2022-12-30] MEDS: Ipratropium/Albuterol 3 ML NEB IPPB SCH ×3 (08:05→18:51)
[2022-12-30] MEDS ORDERED: Magnesium 2 GM/50 ML(in water) 2 GM in Premix Bag 1 BAG IVPB SCH (08:15)
[2022-12-30] MEDS: Polyethylene Glycol 3350 17 GM Packet PO SCH (08:21)
[2022-12-30] MEDS: traMADol HCl 50 MG TAB PO PRN ×2 (08:22→20:36)
[2022-12-30] MEDS: Senokot S 8.6-50 MG TAB PO SCH ×2 (08:23→20:36)
[2022-12-30] MEDS: Dexamethasone 4 MG TAB PO SCH ×2 (08:24→17:35)
[2022-12-30] MEDS: PHOS-NAK 1 PKT PACK PO SCH ×2 (08:25→14:14)
[2022-12-30] MEDS: Bacitracin 1 PK TOP SCH ×3 (08:26→20:36)
[2022-12-30] MEDS: Sodium Chloride 0.45% 1,000 ML IV SCH (08:27)
[2022-12-30] MEDS: Ondansetron ODT 4 MG TAB PO PRN (08:34)
[2022-12-30] MEDS: Digoxin 0.125 MG TAB PO SCH (08:35)
[2022-12-30] MEDS: Benzonatate 100 MG CAP PO PRN (08:40)
[2022-12-30] MEDS: Morphine 4 MG/ML VIAL SLOW IVP PRN (09:25)
[2022-12-30] MEDS: Nicotine 14 MG PATCH TD SCH (09:31)
[2022-12-30] MEDS: Calcium Carbonate 500 MG ChewTAB PO PRN ×2 (09:31→20:35)
[2022-12-30] MEDS: Phenytoin Extended Release 100 MG CAP PO SCH (20:35)
[2022-12-30] MEDS: Acetaminophen 325 MG TAB PO PRN (22:51)
[2022-12-30] MEDS: Melatonin 3 MG TAB PO PRN (22:52)
[2022-12-31] MEDS: Ipratropium/Albuterol 3 ML NEB IPPB SCH ×4 (01:26→19:29)
[2022-12-31 05:33] LABS: #Lymphocytes 1.1 thou/uL (1.20-3.40); #Monocytes 0.3 thou/uL (0.11-0.59); #Neutrophils 15.7 thou/uL (1.40-6.50); %Basophils 0.2 % (0.0-1.0); %Eosinophils 0.1 % (0.0-10.0); %Lymphocytes 6.3 % (21.0-51.0); %Neutrophils 91.5 % (42.0-75.0); Hemoglobin 13.4 g/dL (12.0-16.0); Mean Corpuscular HGB CONC 33.4 g/dL (32.0-36.0); Mean Corpuscular Hemoglobin 32.2 pg (27.0-31.0); Mean Corpuscular Volume 96.6 fl (78.0-98.0); Mean Platelet Volume 7.4 fL (7.4-10.4); Platelet Count 257 10x3/uL (130-400); RBC Distribution Width 12.7 % (11.5-14.5); Red Blood Cell (RBC) Count 4.16 mill/uL (4.20-5.40); White Blood Cell (WBC) Count 17.1 10x3/uL (4.8-10.8)
[2022-12-31 06:03] LABS: ALT (SGPT) 9 U/L (8-55); AST (SGOT) 9 U/L (5-34); Albumin 2.3 g/dL (3.4-4.8); Alkaline Phosphatase 79 U/L (40-110); Anion Gap 11 mmol/L (10-20); BUN (Urea Nitrogen) 13 mg/dL (9.8-20.1); Bilirubin, Total 0.3 mg/dL (0.2-1.2); Calc. Creatinine Clearance 93 mL/min (70-130); Carbon Dioxide 24 mmol/L (23-31); Chloride 106 mmol/L (98-107); Estimated GFR 97; Globulin 2.8 g/dL (2.4-3.5); Glucose 102 mg/dL (83-110); Magnesium 2.2 mg/dL (1.6-2.6); Phosphorus 2.1 mg/dL (2.3-4.7); Potassium 4.1 mmol/L (3.5-5.1); Protein, Total 5.1 g/dL (5.8-8.1); Sodium 137 mmol/L (136-145)
[2022-12-31] MEDS: Digoxin 0.125 MG TAB PO SCH (08:10)
[2022-12-31] MEDS: Senokot S 8.6-50 MG TAB PO SCH ×2 (08:10→23:12)
[2022-12-31] MEDS: Polyethylene Glycol 3350 17 GM Packet PO SCH (08:10)
[2022-12-31] MEDS: Dexamethasone 4 MG TAB PO SCH ×2 (08:11→16:58)
[2022-12-31] MEDS: Bacitracin 1 PK TOP SCH ×3 (08:11→21:57)
[2022-12-31] MEDS: traMADol HCl 50 MG TAB PO PRN ×3 (08:56→21:57)
[2022-12-31] MEDS: Benzonatate 100 MG CAP PO PRN (08:56)
[2022-12-31] MEDS: Nicotine 14 MG PATCH TD SCH (10:55)
[2022-12-31] MEDS ORDERED: Piperacillin/Tazobactam 3.375 GM in Sodium Chloride 0.9% 100 ML IVPB SCH ×2 (12:15→14:00)
[2022-12-31] MEDS ORDERED: Cyclobenzaprine 10 MG TAB PO SCH (14:45)
[2022-12-31] MEDS ORDERED: Albumin 25% 25 GM/100 ML BOT IVPB SCH (15:49)
[2022-12-31] MEDS ORDERED: Furosemide 40 MG/4 ML VIAL IVP SCH (15:50)
[2022-12-31] MEDS: Melatonin 3 MG TAB PO PRN (21:56)
[2022-12-31] MEDS: Phenytoin Extended Release 100 MG CAP PO SCH (21:56)
[2022-12-31] MEDS: Calcium Carbonate 500 MG ChewTAB PO PRN (21:57)
[2022-12-31] MEDS: Piperacillin/Tazobactam 3.375 GM in Sodium Chloride 0.9% 100 ML IVPB SCH (21:58)
[2023-01-01] MEDS: Ipratropium/Albuterol 3 ML NEB IPPB SCH ×4 (01:09→19:19)
[2023-01-01] MEDS: Piperacillin/Tazobactam 3.375 GM in Sodium Chloride 0.9% 100 ML IVPB SCH ×3 (05:40→21:26)
[2023-01-01] MEDS: Digoxin 0.125 MG TAB PO SCH (09:02)
[2023-01-01] MEDS: Dexamethasone 4 MG TAB PO SCH ×2 (09:02→17:35)
[2023-01-01] MEDS: Bacitracin 1 PK TOP SCH ×3 (09:02→21:27)
[2023-01-01] MEDS: Senokot S 8.6-50 MG TAB PO SCH ×2 (09:03→21:48)
[2023-01-01] MEDS: Polyethylene Glycol 3350 17 GM Packet PO SCH (09:03)
[2023-01-01] MEDS ORDERED: Furosemide 40 MG/4 ML VIAL IVP SCH (09:36)
[2023-01-01] MEDS: Nicotine 14 MG PATCH TD SCH (11:11)
[2023-01-01] MEDS ORDERED: Calcium Carbonate 500 MG ChewTAB PO PRN (11:46)
[2023-01-01] MEDS: Calcium Carbonate 500 MG ChewTAB PO PRN ×2 (12:19→21:26)
[2023-01-01] MEDS: traMADol HCl 50 MG TAB PO PRN (14:35)
[2023-01-01] MEDS: Benzonatate 100 MG CAP PO PRN (21:26)
[2023-01-01] MEDS: Phenytoin Extended Release 100 MG CAP PO SCH (21:27)
[2023-01-01] MEDS: Melatonin 3 MG TAB PO PRN (21:27)
[2023-01-02] MEDS: Ipratropium/Albuterol 3 ML NEB IPPB SCH ×4 (01:16→19:16)
[2023-01-02 05:43] LABS: #Eosinphils 0.1 thou/uL (0.0-0.7); #Monocytes 0.5 thou/uL (0.11-0.59); #Neutrophils 10.7 thou/uL (1.40-6.50); %Basophils 0.1 % (0.0-1.0); %Eosinophils 0.4 % (0.0-10.0); %Lymphocytes 8.4 % (21.0-51.0); %Monocytes 3.9 % (0.0-10.0); %Neutrophils 87.3 % (42.0-75.0); Hemoglobin 12.7 g/dL (12.0-16.0); Mean Corpuscular HGB CONC 33.1 g/dL (32.0-36.0); Mean Corpuscular Hemoglobin 31.4 pg (27.0-31.0); Mean Corpuscular Volume 94.9 fl (78.0-98.0); Mean Platelet Volume 7.2 fL (7.4-10.4); Platelet Count 302 10x3/uL (130-400); RBC Distribution Width 12.8 % (11.5-14.5); Red Blood Cell (RBC) Count 4.04 mill/uL (4.20-5.40); White Blood Cell (WBC) Count 12.2 10x3/uL (4.8-10.8)
[2023-01-02] MEDS: Piperacillin/Tazobactam 3.375 GM in Sodium Chloride 0.9% 100 ML IVPB SCH ×3 (05:51→21:43)
[2023-01-02 06:02] LABS: ALT (SGPT) 8 U/L (8-55); AST (SGOT) 11 U/L (5-34); Albumin 2.7 g/dL (3.4-4.8); Alkaline Phosphatase 89 U/L (40-110); Anion Gap 12 mmol/L (10-20); BUN (Urea Nitrogen) 13 mg/dL (9.8-20.1); Bilirubin, Total 0.4 mg/dL (0.2-1.2); Calc. Creatinine Clearance 94 mL/min (70-130); Calcium 8.5 mg/dL (7.8-10.44); Carbon Dioxide 29 mmol/L (23-31); Chloride 97 mmol/L (98-107); Estimated GFR 97; Globulin 2.9 g/dL (2.4-3.5); Glucose 97 mg/dL (83-110); Potassium 3.4 mmol/L (3.5-5.1); Protein, Total 5.6 g/dL (5.8-8.1); Sodium 135 mmol/L (136-145)
[2023-01-02] MEDS ORDERED: Potassium Chloride 20 MEQ TAB PO SCH (08:00)
[2023-01-02] MEDS: Bacitracin 1 PK TOP SCH ×3 (09:17→21:43)
[2023-01-02] MEDS: Digoxin 0.125 MG TAB PO SCH (09:17)
[2023-01-02] MEDS: Polyethylene Glycol 3350 17 GM Packet PO SCH (09:17)
[2023-01-02] MEDS: Dexamethasone 4 MG TAB PO SCH ×2 (09:17→17:24)
[2023-01-02] MEDS: Senokot S 8.6-50 MG TAB PO SCH ×2 (09:18→21:43)
[2023-01-02] MEDS: traMADol HCl 50 MG TAB PO PRN (09:20)
[2023-01-02] MEDS: Calcium Carbonate 500 MG ChewTAB PO PRN ×3 (10:55→21:41)
[2023-01-02] MEDS: Nicotine 14 MG PATCH TD SCH (10:55)
[2023-01-02] MEDS: Phenytoin Extended Release 100 MG CAP PO SCH (21:43)
[2023-01-02] MEDS: Melatonin 3 MG TAB PO PRN (23:11)
[2023-01-03] MEDS: Ipratropium/Albuterol 3 ML NEB IPPB SCH ×4 (00:48→19:58)
[2023-01-03] MEDS: Piperacillin/Tazobactam 3.375 GM in Sodium Chloride 0.9% 100 ML IVPB SCH ×3 (05:30→21:26)
[2023-01-03 06:07] LABS: #Eosinphils 0.1 thou/uL (0.0-0.7); #Monocytes 0.5 thou/uL (0.11-0.59); #Neutrophils 8.8 thou/uL (1.40-6.50); %Basophils 0.1 % (0.0-1.0); %Eosinophils 0.5 % (0.0-10.0); %Lymphocytes 9.5 % (21.0-51.0); %Monocytes 5.1 % (0.0-10.0); %Neutrophils 84.7 % (42.0-75.0); Hemoglobin 12.3 g/dL (12.0-16.0); Mean Corpuscular HGB CONC 32.3 g/dL (32.0-36.0); Mean Corpuscular Hemoglobin 30.8 pg (27.0-31.0); Mean Corpuscular Volume 95.3 fl (78.0-98.0); Mean Platelet Volume 7.2 fL (7.4-10.4); Platelet Count 300 10x3/uL (130-400); RBC Distribution Width 12.5 % (11.5-14.5); White Blood Cell (WBC) Count 10.4 10x3/uL (4.8-10.8)
[2023-01-03 06:57] LABS: ALT (SGPT) 14 U/L (8-55); AST (SGOT) 15 U/L (5-34); Albumin 2.8 g/dL (3.4-4.8); Alkaline Phosphatase 104 U/L (40-110); Anion Gap 14 mmol/L (10-20); BUN (Urea Nitrogen) 17 mg/dL (9.8-20.1); Bilirubin, Total 0.4 mg/dL (0.2-1.2); Calc. Creatinine Clearance 96 mL/min (70-130); Calcium 8.8 mg/dL (7.8-10.44); Carbon Dioxide 26 mmol/L (23-31); Chloride 100 mmol/L (98-107); Estimated GFR 98; Glucose 84 mg/dL (83-110); Potassium 4.2 mmol/L (3.5-5.1); Protein, Total 5.8 g/dL (5.8-8.1); Sodium 136 mmol/L (136-145)
[2023-01-03] MEDS: Senokot S 8.6-50 MG TAB PO SCH ×2 (08:42→21:27)
[2023-01-03] MEDS: Calcium Carbonate 500 MG ChewTAB PO PRN (08:43)
[2023-01-03] MEDS: traMADol HCl 50 MG TAB PO PRN (08:43)
[2023-01-03] MEDS: Polyethylene Glycol 3350 17 GM Packet PO SCH (08:43)
[2023-01-03] MEDS: Dexamethasone 4 MG TAB PO SCH ×2 (08:44→18:06)
[2023-01-03] MEDS: Digoxin 0.125 MG TAB PO SCH (08:44)
[2023-01-03] MEDS: Bacitracin 1 PK TOP SCH ×3 (08:44→21:26)
[2023-01-03] MEDS: Ondansetron ODT 4 MG TAB PO PRN (08:46)
[2023-01-03] MEDS: Nicotine 14 MG PATCH TD SCH (13:21)
[2023-01-03 19:05] LABS: Bacteria/HPF None Seen HPF (None Seen); Bilirubin Negative (Negative); Blood, Urine 1+ (Negative); CAUTI Indications for Culture Acute Hematuria; Clarity Clear (Clear); Glucose, Urine (Dipstick) Normal (Negative); Ketone, Urine Negative (Negative); Leukocyte 75 Leu/uL (Negative); Nitrite Negative (Negative); Protein, Urine (Dipstick) 10 mg/dL (Neg-Trace); Renal Epithelial 0-3 HPF (None Seen); Specific Gravity, Urine 1.013 (1.002-1.036); Squamous Epithelial 0-3 HPF (0-3); Urobilinogen Normal mg/dL (Less than 2); WBC/HPF 21-50 HPF (0-3); pH, Urine 7.5 (5.0-9.0)
[2023-01-03 19:06] LABS: Urine Culture Reflex Yes Yes
[2023-01-03] MEDS: Melatonin 3 MG TAB PO PRN (21:26)
[2023-01-03] MEDS: Phenytoin Extended Release 100 MG CAP PO SCH (21:26)
[2023-01-04] MEDS: Ipratropium/Albuterol 3 ML NEB IPPB SCH ×2 (00:29→07:15)
[2023-01-04] MEDS: traMADol HCl 50 MG TAB PO PRN (01:36)
[2023-01-04] MEDS: Piperacillin/Tazobactam 3.375 GM in Sodium Chloride 0.9% 100 ML IVPB SCH ×3 (05:30→22:00)
[2023-01-04 07:06] LABS: #Basophils 0.1 thou/uL (0.0-0.2); #Eosinphils 0.2 thou/uL (0.0-0.7); #Lymphocytes 0.9 thou/uL (1.20-3.40); #Monocytes 0.6 thou/uL (0.11-0.59); #Neutrophils 7.2 thou/uL (1.40-6.50); %Basophils 0.9 % (0.0-1.0); %Eosinophils 1.9 % (0.0-10.0); %Monocytes 6.4 % (0.0-10.0); %Neutrophils 80.9 % (42.0-75.0); Hemoglobin 12.2 g/dL (12.0-16.0); Mean Corpuscular HGB CONC 32.9 g/dL (32.0-36.0); Mean Corpuscular Hemoglobin 31.9 pg (27.0-31.0); Mean Platelet Volume 7.8 fL (7.4-10.4); Platelet Count 254 10x3/uL (130-400); RBC Distribution Width 12.9 % (11.5-14.5); Red Blood Cell (RBC) Count 3.82 mill/uL (4.20-5.40); White Blood Cell (WBC) Count 8.8 10x3/uL (4.8-10.8)
[2023-01-04 07:24] LABS: Anion Gap 14 mmol/L (10-20); BUN (Urea Nitrogen) 12 mg/dL (9.8-20.1); Calc. Creatinine Clearance 93 mL/min (70-130); Calcium 8.1 mg/dL (7.8-10.44); Carbon Dioxide 24 mmol/L (23-31); Chloride 100 mmol/L (98-107); Estimated GFR 98; Glucose 81 mg/dL (83-110); Potassium 4.1 mmol/L (3.5-5.1); Sodium 134 mmol/L (136-145)
[2023-01-04] MEDS ORDERED: cefTRIAXone\\ROCEPHIN 1 GM in Sodium Chloride 0.9% 100 ML IVPB SCH (08:00)
[2023-01-04] MEDS: Digoxin 0.125 MG TAB PO SCH (10:27)
[2023-01-04] MEDS: Dexamethasone 4 MG TAB PO SCH ×2 (10:27→17:08)
[2023-01-04] MEDS: Polyethylene Glycol 3350 17 GM Packet PO SCH (10:28)
[2023-01-04] MEDS: Bacitracin 1 PK TOP SCH ×3 (10:28→22:02)
[2023-01-04] MEDS: Acetaminophen 325 MG TAB PO PRN (10:28)
[2023-01-04] MEDS: Nicotine 14 MG PATCH TD SCH (10:29)
[2023-01-04] MEDS: Senokot S 8.6-50 MG TAB PO SCH ×2 (10:32→21:59)
[2023-01-04 13:44] LABS: Magnesium 1.8 mg/dL (1.6-2.6); Phosphorus 3.2 mg/dL (2.3-4.7)
[2023-01-04] MEDS ORDERED: ISOVUE-370 76%-LOCM 500 ML MDV (1 ML CHARGE) ONE (15:26)
[2023-01-04] MEDS: Phenytoin Extended Release 100 MG CAP PO SCH (21:59)
[2023-01-05] MEDS: Piperacillin/Tazobactam 3.375 GM in Sodium Chloride 0.9% 100 ML IVPB SCH ×3 (05:41→21:20)
[2023-01-05 06:32] LABS: #Eosinphils 0.1 thou/uL (0.0-0.7); #Monocytes 0.5 thou/uL (0.11-0.59); #Neutrophils 8.1 thou/uL (1.40-6.50); %Basophils 0.4 % (0.0-1.0); %Lymphocytes 9.8 % (21.0-51.0); %Monocytes 5.3 % (0.0-10.0); %Neutrophils 83.5 % (42.0-75.0); Mean Corpuscular HGB CONC 33.5 g/dL (32.0-36.0); Mean Corpuscular Hemoglobin 32.2 pg (27.0-31.0); Mean Corpuscular Volume 96.2 fl (78.0-98.0); Platelet Count 306 10x3/uL (130-400); RBC Distribution Width 12.8 % (11.5-14.5); Red Blood Cell (RBC) Count 3.74 mill/uL (4.20-5.40); White Blood Cell (WBC) Count 9.7 10x3/uL (4.8-10.8)
[2023-01-05 06:53] LABS: Anion Gap 15 mmol/L (10-20); BUN (Urea Nitrogen) 12 mg/dL (9.8-20.1); Calc. Creatinine Clearance 89 mL/min (70-130); Calcium 8.2 mg/dL (7.8-10.44); Carbon Dioxide 23 mmol/L (23-31); Chloride 100 mmol/L (98-107); Estimated GFR 97; Glucose 66 mg/dL (83-110); Potassium 3.7 mmol/L (3.5-5.1); Sodium 134 mmol/L (136-145)
[2023-01-05] MEDS ORDERED: Magnesium 2 GM/50 ML(in water) 2 GM in Premix Bag 1 BAG IVPB SCH (08:00)
[2023-01-05] MEDS: Acetaminophen 325 MG TAB PO PRN ×2 (08:41→21:19)
[2023-01-05] MEDS: Bacitracin 1 PK TOP SCH ×3 (08:42→21:22)
[2023-01-05] MEDS: Senokot S 8.6-50 MG TAB PO SCH ×2 (08:43→21:20)
[2023-01-05] MEDS: Dexamethasone 4 MG TAB PO SCH ×2 (08:43→17:35)
[2023-01-05] MEDS: Polyethylene Glycol 3350 17 GM Packet PO SCH (08:43)
[2023-01-05] MEDS: Digoxin 0.125 MG TAB PO SCH (08:43)
[2023-01-05] MEDS: Nicotine 14 MG PATCH TD SCH (10:59)
[2023-01-05] MEDS ORDERED: Iopamidol-370 76% 500 ML MDV (1 ML CHARGE) ONE (11:01)
[2023-01-05] MEDS ORDERED: Cepastat Lozenges 1 LOZ PO PRN (15:46)
[2023-01-05] MEDS: Phenytoin Extended Release 100 MG CAP PO SCH (21:19)
[2023-01-06] MEDS: Piperacillin/Tazobactam 3.375 GM in Sodium Chloride 0.9% 100 ML IVPB SCH ×3 (05:27→21:40)
[2023-01-06] MEDS: Senokot S 8.6-50 MG TAB PO SCH ×2 (08:23→21:44)
[2023-01-06] MEDS: Digoxin 0.125 MG TAB PO SCH (08:23)
[2023-01-06] MEDS: Polyethylene Glycol 3350 17 GM Packet PO SCH (08:24)
[2023-01-06] MEDS: Dexamethasone 4 MG TAB PO SCH ×2 (08:24→16:56)
[2023-01-06] MEDS: Bacitracin 1 PK TOP SCH ×3 (08:24→21:43)
[2023-01-06] MEDS: Nicotine 14 MG PATCH TD SCH (12:50)
[2023-01-06] MEDS: Phenytoin Extended Release 100 MG CAP PO SCH (21:43)
[2023-01-07 06:44] LABS: Anion Gap 12 mmol/L (10-20); BUN (Urea Nitrogen) 16 mg/dL (9.8-20.1); Calc. Creatinine Clearance 93 mL/min (70-130); Calcium 7.7 mg/dL (7.8-10.44); Carbon Dioxide 24 mmol/L (23-31); Chloride 102 mmol/L (98-107); Estimated GFR 98; Glucose 97 mg/dL (83-110); Potassium 3.4 mmol/L (3.5-5.1); Sodium 135 mmol/L (136-145)
[2023-01-07 06:48] LABS: Phosphorus 1.5 mg/dL (2.3-4.7)
[2023-01-07] MEDS ORDERED: Potassium Chloride 20 MEQ TAB PO SCH (07:00)
[2023-01-07] MEDS ORDERED: Magnesium 2 GM/50 ML(in water) 2 GM in Premix Bag 1 BAG IVPB SCH (07:00)
[2023-01-07] MEDS ORDERED: PHOS-NAK 1 PKT PACK PO SCH (07:00)
[2023-01-07] MEDS ORDERED: Electrolyte Replacement Protocol FS PRN (07:00)
[2023-01-07] MEDS: Senokot S 8.6-50 MG TAB PO SCH ×2 (08:58→22:06)
[2023-01-07] MEDS: Polyethylene Glycol 3350 17 GM Packet PO SCH (08:58)
[2023-01-07] MEDS: Digoxin 0.125 MG TAB PO SCH (08:58)
[2023-01-07] MEDS: Dexamethasone 4 MG TAB PO SCH (08:58)
[2023-01-07] MEDS: Bacitracin 1 PK TOP SCH ×3 (10:58→22:06)
[2023-01-07] MEDS: Nicotine 14 MG PATCH TD SCH (11:17)
[2023-01-07] MEDS: traMADol HCl 50 MG TAB PO PRN (16:19)
[2023-01-07] MEDS: Lactated Ringer's 1,000 ML IV SCH (16:20)
[2023-01-07] MEDS: Dexamethasone 1 MG TAB PO SCH (17:33)
[2023-01-07] MEDS: Phenytoin Extended Release 100 MG CAP PO SCH (22:05)
[2023-01-08 06:58] LABS: Anion Gap 12 mmol/L (10-20); BUN (Urea Nitrogen) 12 mg/dL (9.8-20.1); Calc. Creatinine Clearance 102 mL/min (70-130); Calcium 8.2 mg/dL (7.8-10.44); Carbon Dioxide 24 mmol/L (23-31); Chloride 104 mmol/L (98-107); Estimated GFR 101; Glucose 83 mg/dL (83-110); Magnesium 2.3 mg/dL (1.6-2.6); Phosphorus 1.6 mg/dL (2.3-4.7); Potassium 4.4 mmol/L (3.5-5.1); Sodium 136 mmol/L (136-145)
[2023-01-08] MEDS: Dexamethasone 1 MG TAB PO SCH ×2 (08:21→17:32)
[2023-01-08] MEDS: Bacitracin 1 PK TOP SCH ×3 (08:21→21:57)
[2023-01-08] MEDS: PHOS-NAK 1 PKT PACK PO SCH ×2 (08:21→12:09)
[2023-01-08] MEDS: Digoxin 0.125 MG TAB PO SCH (08:21)
[2023-01-08] MEDS: Senokot S 8.6-50 MG TAB PO SCH ×2 (08:22→22:03)
[2023-01-08] MEDS: Polyethylene Glycol 3350 17 GM Packet PO SCH (08:22)
[2023-01-08] MEDS: Nicotine 14 MG PATCH TD SCH (12:09)
[2023-01-08] MEDS: Lactated Ringer's 1,000 ML IV SCH (18:13)
[2023-01-08] MEDS: Phenytoin Extended Release 100 MG CAP PO SCH (21:57)
[2023-01-09] MEDS: Digoxin 0.125 MG TAB PO SCH (08:36)
[2023-01-09] MEDS: Bacitracin 1 PK TOP SCH ×3 (08:36→21:26)
[2023-01-09] MEDS: Dexamethasone 1 MG TAB PO SCH ×2 (08:37→16:58)
[2023-01-09] MEDS: Polyethylene Glycol 3350 17 GM Packet PO SCH (08:38)
[2023-01-09] MEDS: Senokot S 8.6-50 MG TAB PO SCH ×2 (08:38→21:27)
[2023-01-09] MEDS: PHOS-NAK 1 PKT PACK PO SCH ×2 (11:59→16:58)
[2023-01-09] MEDS: Nicotine 14 MG PATCH TD SCH (12:00)
[2023-01-09] MEDS ORDERED: Nicotine 14 MG PATCH TD PRN (12:28)
[2023-01-09] MEDS: Phenytoin Extended Release 100 MG CAP PO SCH (21:27)
[2023-01-10 05:46] LABS: #Eosinphils 0.1 thou/uL (0.0-0.7); #Lymphocytes 1.4 thou/uL (1.20-3.40); #Monocytes 0.7 thou/uL (0.11-0.59); #Neutrophils 8.7 thou/uL (1.40-6.50); %Basophils 0.4 % (0.0-1.0); %Eosinophils 0.8 % (0.0-10.0); %Lymphocytes 12.5 % (21.0-51.0); %Monocytes 6.6 % (0.0-10.0); %Neutrophils 79.7 % (42.0-75.0); Hemoglobin 13.1 g/dL (12.0-16.0); Mean Corpuscular HGB CONC 33.3 g/dL (32.0-36.0); Mean Corpuscular Hemoglobin 31.2 pg (27.0-31.0); Mean Corpuscular Volume 93.8 fl (78.0-98.0); Mean Platelet Volume 6.7 fL (7.4-10.4); Platelet Count 381 10x3/uL (130-400); RBC Distribution Width 13.1 % (11.5-14.5); Red Blood Cell (RBC) Count 4.19 mill/uL (4.20-5.40); White Blood Cell (WBC) Count 10.9 10x3/uL (4.8-10.8)
[2023-01-10 06:11] LABS: Anion Gap 13 mmol/L (10-20); BUN (Urea Nitrogen) 13 mg/dL (9.8-20.1); Calc. Creatinine Clearance 96 mL/min (70-130); Calcium 8.5 mg/dL (7.8-10.44); Carbon Dioxide 24 mmol/L (23-31); Chloride 100 mmol/L (98-107); Estimated GFR 101; Glucose 100 mg/dL (83-110); Phosphorus 2.6 mg/dL (2.3-4.7); Sodium 133 mmol/L (136-145)
[2023-01-10] MEDS: Senokot S 8.6-50 MG TAB PO SCH ×2 (08:59→21:44)
[2023-01-10] MEDS: Polyethylene Glycol 3350 17 GM Packet PO SCH (08:59)
[2023-01-10] MEDS: Dexamethasone 1 MG TAB PO SCH ×2 (09:01→17:58)
[2023-01-10] MEDS: Digoxin 0.125 MG TAB PO SCH (09:02)
[2023-01-10] MEDS: Bacitracin 1 PK TOP SCH ×3 (09:03→21:27)
[2023-01-10] MEDS: traMADol HCl 50 MG TAB PO PRN (16:46)
[2023-01-10] MEDS: Phenytoin Extended Release 100 MG CAP PO SCH (21:26)
[2023-01-10] MEDS: Budesonide 0.5 MG/2 ML NEB NEB SCH (21:27)
[2023-01-10] MEDS: Melatonin 3 MG TAB PO PRN (21:27)
[2023-01-11] MEDS: Budesonide 0.5 MG/2 ML NEB NEB SCH ×2 (05:55→19:30)
[2023-01-11 06:01] LABS: Anion Gap 13 mmol/L (10-20); BUN (Urea Nitrogen) 13 mg/dL (9.8-20.1); Calc. Creatinine Clearance 96 mL/min (70-130); Calcium 8.6 mg/dL (7.8-10.44); Carbon Dioxide 26 mmol/L (23-31); Chloride 99 mmol/L (98-107); Estimated GFR 101; Glucose 110 mg/dL (83-110); Potassium 4.2 mmol/L (3.5-5.1); Sodium 134 mmol/L (136-145)
[2023-01-11] MEDS: Digoxin 0.125 MG TAB PO SCH (08:07)
[2023-01-11] MEDS: Bacitracin 1 PK TOP SCH ×3 (08:07→21:01)
[2023-01-11] MEDS: Polyethylene Glycol 3350 17 GM Packet PO SCH (08:08)
[2023-01-11] MEDS: Senokot S 8.6-50 MG TAB PO SCH ×2 (08:08→21:00)
[2023-01-11] MEDS: Dexamethasone 4 MG TAB PO SCH (08:38)
[2023-01-11] MEDS ORDERED: Dexamethasone 20 MG/5 ML VIAL SLOW IVP SCH (09:00)
[2023-01-11] MEDS ORDERED: Dexamethasone 4 mg/ml Vial SLOW IVP SCH (09:00)
[2023-01-11] MEDS: Phenytoin Extended Release 100 MG CAP PO SCH (21:01)
[2023-01-12 05:44] LABS: #Eosinphils 0.1 thou/uL (0.0-0.7); #Lymphocytes 1.1 thou/uL (1.20-3.40); #Monocytes 0.7 thou/uL (0.11-0.59); #Neutrophils 6.9 thou/uL (1.40-6.50); %Basophils 0.3 % (0.0-1.0); %Eosinophils 1.5 % (0.0-10.0); %Monocytes 8.1 % (0.0-10.0); %Neutrophils 78.1 % (42.0-75.0); Mean Corpuscular HGB CONC 32.5 g/dL (32.0-36.0); Mean Corpuscular Hemoglobin 30.7 pg (27.0-31.0); Mean Corpuscular Volume 94.6 fl (78.0-98.0); Platelet Count 373 10x3/uL (130-400); Red Blood Cell (RBC) Count 3.89 mill/uL (4.20-5.40); White Blood Cell (WBC) Count 8.9 10x3/uL (4.8-10.8)
[2023-01-12 06:01] LABS: Anion Gap 13 mmol/L (10-20); BUN (Urea Nitrogen) 12 mg/dL (9.8-20.1); Calc. Creatinine Clearance 103 mL/min (70-130); Calcium 8.3 mg/dL (7.8-10.44); Carbon Dioxide 24 mmol/L (23-31); Chloride 99 mmol/L (98-107); Estimated GFR 102; Glucose 103 mg/dL (83-110); Magnesium 1.9 mg/dL (1.6-2.6); Potassium 3.9 mmol/L (3.5-5.1); Sodium 132 mmol/L (136-145)
[2023-01-12] MEDS ORDERED: Magnesium 2 GM/50 ML(in water) 2 GM in Premix Bag 1 BAG IVPB SCH (08:00)
[2023-01-12] MEDS: Budesonide 0.5 MG/2 ML NEB NEB SCH ×2 (08:01→19:48)
[2023-01-12] MEDS: Digoxin 0.125 MG TAB PO SCH (08:36)
[2023-01-12] MEDS: Senokot S 8.6-50 MG TAB PO SCH ×2 (08:37→20:30)
[2023-01-12] MEDS: Polyethylene Glycol 3350 17 GM Packet PO SCH (08:37)
[2023-01-12] MEDS: Magnesium Oxide 400 MG TAB PO SCH (08:37)
[2023-01-12] MEDS: Dexamethasone 4 MG TAB PO SCH (08:37)
[2023-01-12] MEDS: Acetaminophen 325 MG TAB PO PRN (14:44)
[2023-01-12] MEDS: Calcium Carbonate 500 MG ChewTAB PO PRN (20:29)
[2023-01-12] MEDS: traMADol HCl 50 MG TAB PO PRN (20:29)
[2023-01-12] MEDS: Phenytoin Extended Release 100 MG CAP PO SCH (20:30)
[2023-01-13 05:56] LABS: #Eosinphils 0.1 thou/uL (0.0-0.7); #Monocytes 0.6 thou/uL (0.11-0.59); #Neutrophils 6.5 thou/uL (1.40-6.50); %Basophils 0.4 % (0.0-1.0); %Eosinophils 1.5 % (0.0-10.0); %Lymphocytes 11.6 % (21.0-51.0); %Monocytes 7.8 % (0.0-10.0); %Neutrophils 78.7 % (42.0-75.0); Hemoglobin 11.6 g/dL (12.0-16.0); Mean Corpuscular HGB CONC 32.9 g/dL (32.0-36.0); Mean Corpuscular Volume 94.2 fl (78.0-98.0); Mean Platelet Volume 6.9 fL (7.4-10.4); Platelet Count 416 10x3/uL (130-400); RBC Distribution Width 12.9 % (11.5-14.5); Red Blood Cell (RBC) Count 3.76 mill/uL (4.20-5.40); White Blood Cell (WBC) Count 8.2 10x3/uL (4.8-10.8)
[2023-01-13 06:30] LABS: ALT (SGPT) 95 U/L (8-55); AST (SGOT) 67 U/L (5-34); Albumin 2.6 g/dL (3.4-4.8); Alkaline Phosphatase 190 U/L (40-110); Anion Gap 13 mmol/L (10-20); BUN (Urea Nitrogen) 14 mg/dL (9.8-20.1); Bilirubin, Total 0.2 mg/dL (0.2-1.2); Calc. Creatinine Clearance 106 mL/min (70-130); Calcium 8.8 mg/dL (7.8-10.44); Carbon Dioxide 26 mmol/L (23-31); Chloride 99 mmol/L (98-107); Estimated GFR 102; Globulin 3.6 g/dL (2.4-3.5); Glucose 108 mg/dL (83-110); Potassium 3.7 mmol/L (3.5-5.1); Protein, Total 6.2 g/dL (5.8-8.1); Sodium 134 mmol/L (136-145)
[2023-01-13] MEDS: Magnesium Oxide 400 MG TAB PO SCH (08:18)
[2023-01-13] MEDS: Polyethylene Glycol 3350 17 GM Packet PO SCH ×2 (08:18→08:24)
[2023-01-13] MEDS: Dexamethasone 1 MG TAB PO SCH (08:18)
[2023-01-13] MEDS: Digoxin 0.125 MG TAB PO SCH (08:19)
[2023-01-13] MEDS: Senokot S 8.6-50 MG TAB PO SCH ×2 (08:19→20:30)
[2023-01-13] MEDS ORDERED: Dexamethasone 4 mg/ml Vial SLOW IVP SCH (09:00)
[2023-01-13] MEDS: Budesonide 0.5 MG/2 ML NEB NEB SCH ×2 (09:00→18:45)
[2023-01-13] MEDS: Phenytoin Extended Release 100 MG CAP PO SCH (20:24)
[2023-01-13] MEDS: Melatonin 3 MG TAB PO PRN (20:24)
[2023-01-14 05:23] LABS: #Eosinphils 0.2 thou/uL (0.0-0.7); #Lymphocytes 1.1 thou/uL (1.20-3.40); #Monocytes 0.8 thou/uL (0.11-0.59); #Neutrophils 5.7 thou/uL (1.40-6.50); %Basophils 0.5 % (0.0-1.0); %Eosinophils 2.4 % (0.0-10.0); %Lymphocytes 14.4 % (21.0-51.0); %Monocytes 9.5 % (0.0-10.0); %Neutrophils 73.1 % (42.0-75.0); Hemoglobin 11.4 g/dL (12.0-16.0); Mean Corpuscular HGB CONC 33.3 g/dL (32.0-36.0); Mean Corpuscular Hemoglobin 31.3 pg (27.0-31.0); Mean Corpuscular Volume 94.1 fl (78.0-98.0); Mean Platelet Volume 6.5 fL (7.4-10.4); Platelet Count 445 10x3/uL (130-400); RBC Distribution Width 12.9 % (11.5-14.5); Red Blood Cell (RBC) Count 3.65 mill/uL (4.20-5.40); White Blood Cell (WBC) Count 7.8 10x3/uL (4.8-10.8)
[2023-01-14 05:47] LABS: ALT (SGPT) 90 U/L (8-55); AST (SGOT) 60 U/L (5-34); Albumin 2.7 g/dL (3.4-4.8); Alkaline Phosphatase 166 U/L (40-110); Anion Gap 13 mmol/L (10-20); BUN (Urea Nitrogen) 14 mg/dL (9.8-20.1); Bilirubin, Total 0.2 mg/dL (0.2-1.2); Calc. Creatinine Clearance 102 mL/min (70-130); Calcium 8.5 mg/dL (7.8-10.44); Carbon Dioxide 25 mmol/L (23-31); Chloride 100 mmol/L (98-107); Estimated GFR 101; Globulin 3.5 g/dL (2.4-3.5); Glucose 95 mg/dL (83-110); Potassium 3.9 mmol/L (3.5-5.1); Protein, Total 6.2 g/dL (5.8-8.1); Sodium 134 mmol/L (136-145)
[2023-01-14] MEDS: Budesonide 0.5 MG/2 ML NEB NEB SCH ×2 (07:49→19:33)
[2023-01-14] MEDS: Magnesium Oxide 400 MG TAB PO SCH (08:24)
[2023-01-14] MEDS: Dexamethasone 1 MG TAB PO SCH (08:24)
[2023-01-14] MEDS: Digoxin 0.125 MG TAB PO SCH (08:24)
[2023-01-14] MEDS: Polyethylene Glycol 3350 17 GM Packet PO SCH (08:35)
[2023-01-14] MEDS: Senokot S 8.6-50 MG TAB PO SCH ×2 (08:35→22:30)
[2023-01-14] MEDS: Phenytoin Extended Release 100 MG CAP PO SCH (21:03)
[2023-01-15] MEDS: Budesonide 0.5 MG/2 ML NEB NEB SCH ×2 (07:29→19:09)
[2023-01-15] MEDS: Digoxin 0.125 MG TAB PO SCH (10:13)
[2023-01-15] MEDS: Dexamethasone 1 MG TAB PO SCH (10:15)
[2023-01-15] MEDS: Magnesium Oxide 400 MG TAB PO SCH (10:15)
[2023-01-15] MEDS: Senokot S 8.6-50 MG TAB PO SCH ×2 (10:16→21:44)
[2023-01-15] MEDS: Polyethylene Glycol 3350 17 GM Packet PO SCH (10:16)
[2023-01-15] MEDS: Acetaminophen 325 MG TAB PO PRN (13:47)
[2023-01-15] MEDS: Phenytoin Extended Release 100 MG CAP PO SCH (21:08)
[2023-01-15] MEDS: Melatonin 3 MG TAB PO PRN (21:08)
[2023-01-16] MEDS: Budesonide 0.5 MG/2 ML NEB NEB SCH (07:02)
[2023-01-16] MEDS: Senokot S 8.6-50 MG TAB PO SCH (08:36)
[2023-01-16] MEDS: Digoxin 0.125 MG TAB PO SCH (08:36)
[2023-01-16] MEDS: Polyethylene Glycol 3350 17 GM Packet PO SCH (08:37)
[2023-01-16] MEDS: Magnesium Oxide 400 MG TAB PO SCH (08:37)
[2023-01-16] MEDS: Dexamethasone 1 MG TAB PO SCH (08:37)
[2023-01-16 12:14] VITALS: BMI 19.3
[2023-01-16] MEDS: Acetaminophen 325 MG TAB PO PRN (14:23)
[2023-01-16 16:12] VITALS: BP 120/59; TEMP 98.6
[2023-01-20 10:16] LABS: Fungus Culture Final report (.)
== END 2023-01-16 16:33 | DRG 25 ==
LOC: CCU 22:53 → NEURO 12-20 16:48 → CCU 12-22 13:04 → NEURO 12-26 19:26 → CCU 12-29 10:45 → NEURO 12-30 20:01
PROVIDERS: ADMIT Hospitalist; ATTEND Hospitalist
PROC: 0BBD8ZX Excision of Right Middle Lung Lobe, Via Natural or Artificial Opening Endoscopic, Diagnostic (ICD-10-PCS; 2022-12-22)
PROC: 0B9C8ZX Drainage of Right Upper Lung Lobe, Via Natural or Artificial Opening Endoscopic, Diagnostic (ICD-10-PCS; 2022-12-22)
PROC: 0B9F8ZZ Drainage of Right Lower Lung Lobe, Via Natural or Artificial Opening Endoscopic (ICD-10-PCS; 2022-12-23)
PROC: 0B9D8ZZ Drainage of Right Middle Lung Lobe, Via Natural or Artificial Opening Endoscopic (ICD-10-PCS; 2022-12-23)
PROC: 0B9L8ZZ Drainage of Left Lung, Via Natural or Artificial Opening Endoscopic (ICD-10-PCS; 2022-12-23)
PROC: 5A09357 Assistance with Respiratory Ventilation, Less than 24 Consecutive Hours, Continuous Positive Airway Pressure (ICD-10-PCS; 2022-12-23)
PROC: 00B70ZZ Excision of Cerebral Hemisphere, Open Approach (ICD-10-PCS; principal; 2022-12-29)
DX: C79.31 Secondary malignant neoplasm of brain (principal); G93.5 Compression of brain; G93.6 Cerebral edema; J96.01 Acute respiratory failure with hypoxia; C34.01 Malignant neoplasm of right main bronchus; I47.1 Supraventricular tachycardia; N39.0 Urinary tract infection, site not specified; J90 Pleural effusion, not elsewhere classified; Z20.822 Contact with and (suspected) exposure to COVID-19; F32.A Depression, unspecified; F17.210 Nicotine dependence, cigarettes, uncomplicated; R29.6 Repeated falls; R79.89 Other specified abnormal findings of blood chemistry; R33.8 Other retention of urine; Y84.8 Other medical procedures as the cause of abnormal reaction of the patient, or of later complication, without mention of misadventure at the time of the procedure; E87.70 Fluid overload, unspecified; Z91.81 History of falling; Z78.1 Physical restraint status
CPT/HCPCS: 31624; 36415; 36416; 36600; 70450; 70553; 71045; 71275; 74177; 80048; 80053; 80162; 80185; 81001; 82550; 82805; 83735; 84100; 84145; 85025; 87070; 87086; 87102; 87116; 87205; 87206; 88112; 88172; 88173; 88305; 88307; 88341; 88342; 93005; 93010; 93306; 93923; 93970; 94002; 94003; 94640; 94660; 95712; 95819; 95957; 97139; A9579; C1713; J0153; J0171; J0696; J1100; J1160; J1165; J1650; J1885; J1940; J1953; J2001; J2270; J2370; J2405; J2543; J2704; J3010; J3475; J3490; J7030; J7050; J7120; J7611; J7620; J7626; J7799; J8540; P9047; Q0162; Q9966; Q9967; S0028

== ENCOUNTER 2023-01-18 17:26 | Inpatient (IN) | payer OTHER ==
[2023-01-18 17:58] LABS: #Basophils 0.1 thou/uL (0.0-0.2); #Eosinphils 0.1 thou/uL (0.0-0.7); #Lymphocytes 1.5 thou/uL (1.20-3.40); #Monocytes 0.9 thou/uL (0.11-0.59); #Neutrophils 10.7 thou/uL (1.40-6.50); %Basophils 0.4 % (0.0-1.0); %Eosinophils 0.5 % (0.0-10.0); %Lymphocytes 11.3 % (21.0-51.0); %Monocytes 7.1 % (0.0-10.0); %Neutrophils 80.6 % (42.0-75.0); Hemoglobin 13.2 g/dL (12.0-16.0); Mean Corpuscular Hemoglobin 31.6 pg (27.0-31.0); Mean Corpuscular Volume 92.8 fl (78.0-98.0); Mean Platelet Volume 6.1 fL (7.4-10.4); Platelet Count 540 10x3/uL (130-400); RBC Distribution Width 13.3 % (11.5-14.5); Red Blood Cell (RBC) Count 4.17 mill/uL (4.20-5.40); White Blood Cell (WBC) Count 13.2 10x3/uL (4.8-10.8)
[2023-01-18 18:24] LABS: ALT (SGPT) 105 U/L (8-55); AST (SGOT) 89 U/L (5-34); Alkaline Phosphatase 294 U/L (40-110); Anion Gap 15 mmol/L (10-20); BUN (Urea Nitrogen) 12 mg/dL (9.8-20.1); Bilirubin, Total 0.4 mg/dL (0.2-1.2); Calc. Creatinine Clearance 0 mL/min (70-130); Calcium 9.2 mg/dL (7.8-10.44); Carbon Dioxide 26 mmol/L (23-31); Chloride 99 mmol/L (98-107); Estimated GFR 98; Globulin 3.7 g/dL (2.4-3.5); Glucose 129 mg/dL (83-110); Potassium 4.2 mmol/L (3.5-5.1); Protein, Total 6.7 g/dL (5.8-8.1); Sodium 136 mmol/L (136-145)
[2023-01-18 18:31] LABS: Bacteria/HPF 4+ HPF (None Seen); Bilirubin Negative (Negative); Blood, Urine 2+ (Negative); Clarity Turbid (Clear); Glucose, Urine (Dipstick) Normal (Negative); Ketone, Urine Negative (Negative); Leukocyte 500 Leu/uL (Negative); Nitrite Negative (Negative); Protein, Urine (Dipstick) 70 mg/dL (Neg-Trace); Specific Gravity, Urine 1.022 (1.002-1.036); Squamous Epithelial 0-3 HPF (0-3); Urobilinogen Normal mg/dL (Less than 2); WBC/HPF Greater than 50 HPF (0-3); pH, Urine 5.5 (5.0-9.0)
[2023-01-18] MEDS ORDERED: Vancomycin 1 GM/200 ML (FROZEN) BAG ONE (18:55)
[2023-01-18] MEDS ORDERED: Cefepime 2 GM VIAL ONE (18:55)
[2023-01-18 19:30] LABS: Actual Bicarbonate (HCO3v) 32 mEq/L (22-28); Analyzer IN Cardio ER; Base Excess 7.1 mEq/L (-2.0 to +3.0); Calcium, Ionized (venous) 1.14 mmol/L (1.16-1.32); Chloride (VBG) 97 mmol/L (98-106); Potassium (VBG) 4.04 mmol/L (3.70-5.30); Sodium 136.1 mmol/L (133-146); pH (venous) 7.46 (7.32-7.43)
[2023-01-18] MEDS ORDERED: Acetaminophen 325 MG TAB ONE (20:49)
[2023-01-19] MEDS ORDERED: Ipratropium/Albuterol 3 ML NEB EZPAP PRN (00:24)
[2023-01-19 00:54] LABS: Troponin I 0.099 ng/mL (< 0.028)
[2023-01-19 01:12] LABS: SARS-CoV-2 NAA Rapid Test DETECTED (NotDetected)
[2023-01-19 01:41] LABS: Digoxin 0.68 ng/mL (0.8-2.0)
[2023-01-19 04:32] LABS: Actual Bicarbonate (HCO3a) 30.6 mEq/L (22-28); Base Excess (BEa) 5.1 mEq/L (-2.0 to +3.0); CO2 Tension 48.8 mmHg (35.0-45.0); Calcium, Ionized (arterial) 1.14 mmol/L (1.12-1.30); Carboxyhemoglobin (COHb) 0.9 gm% (0.0-3.0); Hemoglobin (Hb) 12.8 g/dL (12.0-16.0); O2 Tension (PaO2), arterial 87.3 mmHg (> 70.0); Potassium - ABG Lab 3.78 mmol/L (3.70-5.30); pH, Arterial 7.42 (7.35-7.45)
[2023-01-19 04:33] LABS: Puncture Site RRA
[2023-01-19 04:45] LABS: Digoxin 0.59 ng/mL (0.8-2.0); Dilantin 8.2 ug/mL (10.0-20.0)
[2023-01-19 04:50] LABS: Troponin I 0.083 ng/mL (< 0.028)
[2023-01-19] MEDS: Azithromycin 500 MG in Sodium Chloride 0.9% 250 ML 250 ML IVPB SCH (05:10)
[2023-01-19] MEDS ORDERED: Budesonide 0.5 MG/2 ML NEB NEB SCH (06:30)
[2023-01-19] MEDS ORDERED: Mometasone 100 MCG/PUFF (1 INHALER) INH SCH (07:45)
[2023-01-19] MEDS ORDERED: Dexamethasone 10 MG in Sodium Chloride 0.9% 50 ML IVPB SCH (09:00)
[2023-01-19] MEDS ORDERED: Dexamethasone 1 MG TAB PO SCH (09:00)
[2023-01-19] MEDS: Cefepime 1 GM in Sodium Chloride 0.9% 100 ML IVPB SCH ×2 (09:26→20:58)
[2023-01-19] MEDS: Heparin 5,000 UNITS/ML VIAL SC SCH ×3 (09:27→21:01)
[2023-01-19] MEDS: Digoxin 0.125 MG TAB PO SCH (09:27)
[2023-01-19] MEDS: Magnesium Oxide 400 MG TAB PO SCH (09:27)
[2023-01-19] MEDS ORDERED: Lactated Ringer's 500 ML IV SCH (10:15)
[2023-01-19] MEDS: Lactated Ringer's 1,000 ML IV SCH ×2 (12:48→21:01)
[2023-01-19] MEDS ORDERED: Dexamethasone 10 MG/ML VIAL SLOW IVP SCH (15:45)
[2023-01-19] MEDS: ALPRAZolam 0.25 MG TAB PO PRN (16:38)
[2023-01-19] MEDS: Mometasone 100 MCG/PUFF (1 INHALER) INH SCH (16:38)
[2023-01-19 16:39] LABS: Actual Bicarbonate (HCO3a) 24.8 mEq/L (22-28); Base Excess (BEa) 1.5 mEq/L (-2.0 to +3.0); CO2 Tension 34.9 mmHg (35.0-45.0); Calcium, Ionized (arterial) 1.14 mmol/L (1.12-1.30); Carboxyhemoglobin (COHb) 1.1 gm% (0.0-3.0); Hemoglobin (Hb) 13.4 g/dL (12.0-16.0); Potassium - ABG Lab 3.74 mmol/L (3.70-5.30); pH, Arterial 7.47 (7.35-7.45)
[2023-01-19 16:40] LABS: O2 Tension (PaO2), arterial 46.1 mmHg (> 70.0); Puncture Site RRA
[2023-01-19 16:41] LABS: ALV-art Gradient 223.995 mmHg (0-20)
[2023-01-19] MEDS: Mirtazapine 15 MG TAB PO SCH (21:01)
[2023-01-19] MEDS: Phenytoin Extended Release 100 MG CAP PO SCH (21:01)
[2023-01-20] MEDS: Mometasone 100 MCG/PUFF (1 INHALER) INH SCH ×2 (05:21→17:48)
[2023-01-20] MEDS: Azithromycin 500 MG in Sodium Chloride 0.9% 250 ML 250 ML IVPB SCH (05:21)
[2023-01-20] MEDS: Lactated Ringer's 1,000 ML IV SCH ×2 (06:18→17:48)
[2023-01-20 06:33] LABS: #Basophils 0.1 thou/uL (0.0-0.2); #Eosinphils 0.1 thou/uL (0.0-0.7); #Lymphocytes 1.8 thou/uL (1.20-3.40); #Monocytes 0.8 thou/uL (0.11-0.59); #Neutrophils 12.2 thou/uL (1.40-6.50); %Basophils 0.5 % (0.0-1.0); %Eosinophils 0.4 % (0.0-10.0); %Monocytes 5.3 % (0.0-10.0); %Neutrophils 81.9 % (42.0-75.0); Hemoglobin 12.1 g/dL (12.0-16.0); Mean Corpuscular HGB CONC 30.1 g/dL (32.0-36.0); Mean Corpuscular Hemoglobin 29.9 pg (27.0-31.0); Mean Corpuscular Volume 99.3 fl (78.0-98.0); Mean Platelet Volume 7.3 fL (7.4-10.4); Platelet Count 464 10x3/uL (130-400); RBC Distribution Width 13.4 % (11.5-14.5); Red Blood Cell (RBC) Count 4.04 mill/uL (4.20-5.40); White Blood Cell (WBC) Count 14.9 10x3/uL (4.8-10.8)
[2023-01-20 06:51] LABS: Albumin 2.5 g/dL (3.4-4.8)
[2023-01-20 06:52] LABS: Chloride 104 mmol/L (98-107); Potassium 4.2 mmol/L (3.5-5.1); Sodium 135 mmol/L (136-145)
[2023-01-20 06:53] LABS: Calcium 8.5 mg/dL (7.8-10.44)
[2023-01-20 06:54] LABS: Globulin 3.8 g/dL (2.4-3.5); Glucose 75 mg/dL (83-110); Protein, Total 6.3 g/dL (5.8-8.1)
[2023-01-20 06:55] LABS: Bilirubin, Total 0.3 mg/dL (0.2-1.2); Carbon Dioxide 19 mmol/L (23-31)
[2023-01-20 06:57] LABS: Alkaline Phosphatase 194 U/L (40-110); Calc. Creatinine Clearance 100 mL/min (70-130); Estimated GFR 102
[2023-01-20 06:58] LABS: BUN (Urea Nitrogen) 10 mg/dL (9.8-20.1)
[2023-01-20 06:59] LABS: AST (SGOT) 23 U/L (5-34)
[2023-01-20 07:00] LABS: ALT (SGPT) 47 U/L (8-55)
[2023-01-20 07:04] LABS: Anion Gap 16 mmol/L (10-20)
[2023-01-20] MEDS ORDERED: Cefepime 2 GM in Sodium Chloride 0.9% 100 ML IVPB SCH (08:00)
[2023-01-20] MEDS ORDERED: Dexamethasone 10 MG/ML VIAL SLOW IVP SCH (09:00)
[2023-01-20] MEDS: Digoxin 0.125 MG TAB PO SCH (12:49)
[2023-01-20] MEDS: Magnesium Oxide 400 MG TAB PO SCH (12:49)
[2023-01-20] MEDS: Dexamethasone 10 MG/ML VIAL SLOW IVP SCH (12:50)
[2023-01-20] MEDS: Heparin 5,000 UNITS/ML VIAL SC SCH ×3 (12:50→21:00)
[2023-01-20] MEDS: Mirtazapine 15 MG TAB PO SCH (21:00)
[2023-01-20] MEDS: Phenytoin Extended Release 100 MG CAP PO SCH (21:00)
[2023-01-21] MEDS: ALPRAZolam 0.25 MG TAB PO PRN (00:08)
[2023-01-21] MEDS: Azithromycin 500 MG in Sodium Chloride 0.9% 250 ML 250 ML IVPB SCH (05:24)
[2023-01-21 07:52] LABS: #Eosinphils 0.1 thou/uL (0.0-0.7); #Lymphocytes 1.3 thou/uL (1.20-3.40); #Monocytes 0.8 thou/uL (0.11-0.59); %Basophils 0.4 % (0.0-1.0); %Eosinophils 0.6 % (0.0-10.0); %Lymphocytes 11.5 % (21.0-51.0); %Monocytes 7.1 % (0.0-10.0); %Neutrophils 80.4 % (42.0-75.0); Hemoglobin 10.2 g/dL (12.0-16.0); Mean Corpuscular HGB CONC 32.4 g/dL (32.0-36.0); Mean Corpuscular Hemoglobin 30.5 pg (27.0-31.0); Mean Corpuscular Volume 94.2 fl (78.0-98.0); Mean Platelet Volume 6.5 fL (7.4-10.4); Platelet Count 469 10x3/uL (130-400); RBC Distribution Width 13.2 % (11.5-14.5); Red Blood Cell (RBC) Count 3.34 mill/uL (4.20-5.40); White Blood Cell (WBC) Count 11.2 10x3/uL (4.8-10.8)
[2023-01-21 07:59] LABS: Anion Gap 10 mmol/L (10-20); BUN (Urea Nitrogen) 10 mg/dL (9.8-20.1); Calc. Creatinine Clearance 108 mL/min (70-130); Calcium 7.9 mg/dL (7.8-10.44); Carbon Dioxide 26 mmol/L (23-31); Chloride 102 mmol/L (98-107); Estimated GFR 103; Glucose 89 mg/dL (83-110); Potassium 3.3 mmol/L (3.5-5.1); Sodium 135 mmol/L (136-145)
[2023-01-21] MEDS: Lactated Ringer's 1,000 ML IV SCH ×2 (09:35→15:16)
[2023-01-21] MEDS: Mometasone 100 MCG/PUFF (1 INHALER) INH SCH ×2 (09:35→17:58)
[2023-01-21] MEDS: Magnesium Oxide 400 MG TAB PO SCH (09:36)
[2023-01-21] MEDS: Digoxin 0.125 MG TAB PO SCH (09:36)
[2023-01-21] MEDS: Dexamethasone 10 MG/ML VIAL SLOW IVP SCH (09:36)
[2023-01-21] MEDS: Heparin 5,000 UNITS/ML VIAL SC SCH ×3 (09:36→20:40)
[2023-01-21] MEDS: Mirtazapine 15 MG TAB PO SCH (20:40)
[2023-01-21] MEDS: Phenytoin Extended Release 100 MG CAP PO SCH (20:40)
[2023-01-22] MEDS: Azithromycin 500 MG in Sodium Chloride 0.9% 250 ML 250 ML IVPB SCH (05:03)
[2023-01-22] MEDS: Acetaminophen 325 MG TAB PO PRN ×2 (05:04→17:22)
[2023-01-22] MEDS: Lactated Ringer's 1,000 ML IV SCH ×2 (05:32→15:29)
[2023-01-22] MEDS: Mometasone 100 MCG/PUFF (1 INHALER) INH SCH ×2 (05:59→18:40)
[2023-01-22] MEDS: Magnesium Oxide 400 MG TAB PO SCH (08:33)
[2023-01-22] MEDS: Dexamethasone 10 MG/ML VIAL SLOW IVP SCH (08:35)
[2023-01-22] MEDS: Heparin 5,000 UNITS/ML VIAL SC SCH ×3 (08:35→20:02)
[2023-01-22] MEDS: Digoxin 0.125 MG TAB PO SCH (08:35)
[2023-01-22] MEDS: ALPRAZolam 0.25 MG TAB PO PRN (19:51)
[2023-01-22] MEDS: Ondansetron ODT 4 MG TAB PO PRN (19:55)
[2023-01-22] MEDS: Mirtazapine 15 MG TAB PO SCH (19:56)
[2023-01-22] MEDS: Phenytoin Extended Release 100 MG CAP PO SCH (21:42)
[2023-01-23] MEDS: Lactated Ringer's 1,000 ML IV SCH ×4 (02:50→21:14)
[2023-01-23] MEDS: Acetaminophen 325 MG TAB PO PRN (05:02)
[2023-01-23] MEDS: Digoxin 0.125 MG TAB PO SCH (08:23)
[2023-01-23] MEDS: Magnesium Oxide 400 MG TAB PO SCH (08:26)
[2023-01-23] MEDS: Dexamethasone 10 MG/ML VIAL SLOW IVP SCH (08:27)
[2023-01-23] MEDS: Mometasone 100 MCG/PUFF (1 INHALER) INH SCH ×2 (08:28→18:14)
[2023-01-23] MEDS: Heparin 5,000 UNITS/ML VIAL SC SCH ×3 (08:29→21:17)
[2023-01-23] MEDS: Phenytoin Extended Release 100 MG CAP PO SCH (21:15)
[2023-01-23] MEDS: ALPRAZolam 0.25 MG TAB PO PRN (21:17)
[2023-01-23] MEDS: Mirtazapine 15 MG TAB PO SCH (21:17)
[2023-01-24] MEDS: ALPRAZolam 0.25 MG TAB PO PRN (06:07)
[2023-01-24] MEDS: Acetaminophen 325 MG TAB PO PRN (06:09)
[2023-01-24] MEDS: Mometasone 100 MCG/PUFF (1 INHALER) INH SCH ×2 (09:09→17:48)
[2023-01-24] MEDS: Digoxin 0.125 MG TAB PO SCH (09:10)
[2023-01-24] MEDS: Heparin 5,000 UNITS/ML VIAL SC SCH ×3 (09:10→20:15)
[2023-01-24] MEDS: Dexamethasone 10 MG/ML VIAL SLOW IVP SCH (09:10)
[2023-01-24] MEDS: Magnesium Oxide 400 MG TAB PO SCH (09:10)
[2023-01-24] MEDS: Lactated Ringer's 1,000 ML IV SCH (11:47)
[2023-01-24] MEDS: Phenytoin Extended Release 100 MG CAP PO SCH (20:15)
[2023-01-24] MEDS: Mirtazapine 15 MG TAB PO SCH (20:15)
[2023-01-24] MEDS: Ondansetron ODT 4 MG TAB PO PRN (20:18)
[2023-01-25] MEDS ORDERED: Calcium Carbonate 500 MG ChewTAB PO PRN (00:24)
[2023-01-25] MEDS: Mometasone 100 MCG/PUFF (1 INHALER) INH SCH ×2 (06:49→20:05)
[2023-01-25] MEDS: Digoxin 0.125 MG TAB PO SCH (11:17)
[2023-01-25] MEDS: Dexamethasone 10 MG/ML VIAL SLOW IVP SCH (11:18)
[2023-01-25] MEDS: Magnesium Oxide 400 MG TAB PO SCH (11:18)
[2023-01-25] MEDS: Heparin 5,000 UNITS/ML VIAL SC SCH ×3 (13:54→20:51)
[2023-01-25] MEDS: Calcium Carbonate 500 MG ChewTAB PO PRN (14:09)
[2023-01-25] MEDS: ALPRAZolam 0.25 MG TAB PO PRN (14:16)
[2023-01-25] MEDS: Phenytoin Extended Release 100 MG CAP PO SCH (20:50)
[2023-01-25] MEDS: Mirtazapine 15 MG TAB PO SCH (20:51)
[2023-01-26] MEDS: Heparin 5,000 UNITS/ML VIAL SC SCH ×3 (09:08→21:05)
[2023-01-26] MEDS: Dexamethasone 10 MG/ML VIAL SLOW IVP SCH (09:08)
[2023-01-26] MEDS: Digoxin 0.125 MG TAB PO SCH (09:11)
[2023-01-26] MEDS: Magnesium Oxide 400 MG TAB PO SCH (09:11)
[2023-01-26] MEDS: Mometasone 100 MCG/PUFF (1 INHALER) INH SCH ×2 (09:27→18:42)
[2023-01-26] MEDS: Gabapentin 300 MG CAP PO SCH ×2 (16:02→21:05)
[2023-01-26] MEDS: ALPRAZolam 0.25 MG TAB PO PRN (17:50)
[2023-01-26] MEDS ORDERED: Lorazepam 2 MG/ML VIAL SLOW IVP PRN (18:23)
[2023-01-26] MEDS: Mirtazapine 15 MG TAB PO SCH (21:05)
[2023-01-26] MEDS: Phenytoin Extended Release 100 MG CAP PO SCH (21:05)
[2023-01-27] MEDS: Mometasone 100 MCG/PUFF (1 INHALER) INH SCH ×2 (06:30→17:49)
[2023-01-27] MEDS: Heparin 5,000 UNITS/ML VIAL SC SCH ×3 (09:09→20:11)
[2023-01-27] MEDS: Gabapentin 300 MG CAP PO SCH ×3 (09:09→20:10)
[2023-01-27] MEDS: Dexamethasone 10 MG/ML VIAL SLOW IVP SCH (09:09)
[2023-01-27] MEDS: Magnesium Oxide 400 MG TAB PO SCH (09:10)
[2023-01-27] MEDS: Digoxin 0.125 MG TAB PO SCH (09:11)
[2023-01-27] MEDS: Mirtazapine 15 MG TAB PO SCH (20:09)
[2023-01-27] MEDS: Calcium Carbonate 500 MG ChewTAB PO PRN (20:09)
[2023-01-27] MEDS: ALPRAZolam 0.25 MG TAB PO PRN (20:10)
[2023-01-27] MEDS: Phenytoin Extended Release 100 MG CAP PO SCH (20:10)
[2023-01-28] MEDS: Mometasone 100 MCG/PUFF (1 INHALER) INH SCH ×2 (07:18→18:15)
[2023-01-28] MEDS: Digoxin 0.125 MG TAB PO SCH (09:04)
[2023-01-28] MEDS: Dexamethasone 10 MG/ML VIAL SLOW IVP SCH (09:04)
[2023-01-28] MEDS: Gabapentin 300 MG CAP PO SCH ×3 (09:04→20:39)
[2023-01-28] MEDS: Heparin 5,000 UNITS/ML VIAL SC SCH ×3 (09:05→20:40)
[2023-01-28] MEDS: Magnesium Oxide 400 MG TAB PO SCH (09:05)
[2023-01-28] MEDS: Calcium Carbonate 500 MG ChewTAB PO PRN (20:38)
[2023-01-28] MEDS: ALPRAZolam 0.25 MG TAB PO PRN (20:39)
[2023-01-28] MEDS: Phenytoin Extended Release 100 MG CAP PO SCH (20:40)
[2023-01-28] MEDS: Mirtazapine 15 MG TAB PO SCH (20:40)
[2023-01-29] MEDS: Digoxin 0.125 MG TAB PO SCH (08:13)
[2023-01-29] MEDS: Magnesium Oxide 400 MG TAB PO SCH (08:14)
[2023-01-29] MEDS: Heparin 5,000 UNITS/ML VIAL SC SCH ×3 (08:14→19:52)
[2023-01-29] MEDS: Gabapentin 300 MG CAP PO SCH ×3 (08:14→19:52)
[2023-01-29] MEDS: Dexamethasone 4 mg/ml Vial SLOW IVP SCH (08:14)
[2023-01-29] MEDS: Mometasone 100 MCG/PUFF (1 INHALER) INH SCH ×2 (08:15→18:07)
[2023-01-29] MEDS: Phenytoin Extended Release 100 MG CAP PO SCH (19:53)
[2023-01-29] MEDS: Mirtazapine 15 MG TAB PO SCH (19:53)
[2023-01-29] MEDS: Acetaminophen 325 MG TAB PO PRN (19:54)
[2023-01-29] MEDS: ALPRAZolam 0.25 MG TAB PO PRN (19:54)
[2023-01-29] MEDS: Calcium Carbonate 500 MG ChewTAB PO PRN (20:03)
[2023-01-30] MEDS: Gabapentin 300 MG CAP PO SCH (09:04)
[2023-01-30] MEDS: Dexamethasone 4 mg/ml Vial SLOW IVP SCH (09:04)
[2023-01-30] MEDS: Mometasone 100 MCG/PUFF (1 INHALER) INH SCH (09:05)
[2023-01-30] MEDS: Magnesium Oxide 400 MG TAB PO SCH (09:05)
[2023-01-30] MEDS: Heparin 5,000 UNITS/ML VIAL SC SCH (09:05)
[2023-01-30] MEDS: Digoxin 0.125 MG TAB PO SCH (09:05)
[2023-01-30] MEDS: Calcium Carbonate 500 MG ChewTAB PO PRN (09:15)
[2023-01-30] MEDS: ALPRAZolam 0.25 MG TAB PO PRN (14:08)
[2023-01-30 14:17] VITALS: BMI 20.8
[2023-01-30 15:06] VITALS: BP 124/71; TEMP 98
[2023-01-31] MEDS ORDERED: predniSONE 20 MG TAB PO SCH (08:00)
== END 2023-01-30 14:51 | DRG 205 ==
LOC: ERS 17:26 → 2NO 23:29 → EEVIPCON 23:29 → IMCU/EMU 01-19 04:43 → T4-B 01-22 19:12
PROVIDERS: ADMIT Hospitalist; ATTEND Hospitalist
PROC: 3E03329 Introduction of Other Anti-infective into Peripheral Vein, Percutaneous Approach (ICD-10-PCS; principal; 2023-01-18)
PROC: 8E0ZXY6 Isolation (ICD-10-PCS; 2023-01-18)
PROC: 5A0945A Assistance with Respiratory Ventilation, 24-96 Consecutive Hours, High Flow/Velocity Cannula (ICD-10-PCS; 2023-01-19)
DX: J98.19 Other pulmonary collapse (principal); Z66 Do not resuscitate; Z51.5 Encounter for palliative care; A41.9 Sepsis, unspecified organism; J96.21 Acute and chronic respiratory failure with hypoxia; U07.1 COVID-19; J12.82 Pneumonia due to coronavirus disease 2019; J90 Pleural effusion, not elsewhere classified; C34.01 Malignant neoplasm of right main bronchus; C79.31 Secondary malignant neoplasm of brain; N39.0 Urinary tract infection, site not specified; I47.1 Supraventricular tachycardia; I10 Essential (primary) hypertension; Z71.6 Tobacco abuse counseling; Z79.899 Other long term (current) drug therapy; Z87.891 Personal history of nicotine dependence
CPT/HCPCS: 36415; 36600; 51702; 70450; 71045; 71275; 80048; 80053; 80162; 80185; 81003; 81015; 82553; 82805; 83605; 83880; 84145; 84484; 85025; 86140; 87040; 87086; 93005; 94640; 94760; 96365; J0456; J0692; J1100; J1644; J3370-JW; J3490; J7050; J7120; J7620; Q0162; U0002

== ENCOUNTER 2023-05-23 21:24 | Inpatient (IN) | payer OTHER ==
[~2023-05-23 21:24] MED LIST: Iopamidol-370 76% 500 ML MDV (1 ML CHARGE) ONE
[2023-05-23] MEDS ORDERED: Acetaminophen 325 MG TAB ONE (22:03)
[2023-05-23] MEDS ORDERED: Acetaminophen 325 MG Suppository ONE (22:03)
[2023-05-23 22:04] LABS: Hematocrit 47.6 % (36.0-47.0); Hemoglobin 14.7 g/dL (12.0-16.0); Mean Corpuscular HGB CONC 30.9 g/dL (32.0-36.0); Mean Corpuscular Hemoglobin 29.1 pg (27.0-31.0); Mean Corpuscular Volume 94.3 fl (78.0-98.0); Mean Platelet Volume 10.4 fL (7.4-10.4); Platelet Count 178 10x3/uL (130-400); RBC Distribution Width 16.9 % (11.5-14.5); Red Blood Cell (RBC) Count 5.05 mill/uL (4.20-5.40); White Blood Cell (WBC) Count 14.5 10x3/uL (4.8-10.8)
[2023-05-23 22:10] LABS: Delete Auto Diff?? YES; Manual Diff?? YES
[2023-05-23 22:12] LABS: Actual Bicarbonate (HCO3v) 20.1 mEq/L (22-28); Base Excess -7.6 mEq/L (-2.0 to +3.0); Calcium, Ionized (venous) 1.07 mmol/L (1.16-1.32); Chloride (VBG) 105 mmol/L (98-106); Hematocrit-VBG 48 % (36.0-47.0); Hemoglobin (Hb) 16.2 g/dL (11.7-16.1); pH (venous) 7.236 (7.32-7.43)
[2023-05-23 22:25] LABS: Bilirubin, Total 0.4 mg/dL (0.2-1.2); Calcium 8.7 mg/dL (7.8-10.44); Chloride 108 mmol/L (98-107); Potassium 4.7 mmol/L (3.5-5.1); Sodium 140 mmol/L (136-145)
[2023-05-23 22:27] LABS: Albumin 3.3 g/dL (3.4-4.8)
[2023-05-23 22:30] LABS: Globulin 3.2 g/dL (2.4-3.5); Glucose 297 mg/dL (83-110); Protein, Total 6.5 g/dL (5.8-8.1)
[2023-05-23 22:31] LABS: Anion Gap 23 mmol/L (10-20); Anisocytosis SLIGHT = 6-15 cells HPF (0-5); Band 9 % (5-11); Carbon Dioxide 14 mmol/L (23-31); CellaVision Operator ID LAB.JMM; Lymphocytes 14 % (21-51); Macrocytosis SLIGHT = 6-15 cells HPF (0-5); Myelocyte 2 % (0-0); Neutrophil 75 % (42-75); Platelet Adequacy Comment Platelets Normal; Polychromasia SLIGHT = 2-3 cells HPF (0-2); Total Cell Count 101
[2023-05-23 22:33] LABS: Alkaline Phosphatase 142 U/L (40-110); Calc. Creatinine Clearance 0 mL/min (70-130); Estimated GFR 83
[2023-05-23 22:34] LABS: BUN (Urea Nitrogen) 31 mg/dL (9.8-20.1)
[2023-05-23 22:35] LABS: AST (SGOT) 231 U/L (5-34)
[2023-05-23 22:36] LABS: ALT (SGPT) 223 U/L (8-55)
[2023-05-23] MEDS ORDERED: Cefepime 2 GM VIAL ONE (22:44)
[2023-05-23] MEDS ORDERED: Azithromycin 250 MG TAB ONE (22:44)
[2023-05-23 23:16] LABS: CKMB 7.4 ng/mL (0-6.6)
[2023-05-23] MEDS ORDERED: Heparin 25,000 units/D5W 500 ML ONE (23:33)
[2023-05-23] MEDS ORDERED: Heparin 10,000 UNITS/ 10 ML VIAL ONE (23:33)
[2023-05-23] MEDS ORDERED: Vancomycin 1 GM/200 ML (FROZEN) BAG ONE (23:33)
[2023-05-23 23:56] LABS: SARS-CoV-2 NAA Rapid Test Not Detected (NotDetected)
[2023-05-23 23:56] LABS: INR-International Normal Ratio 1.1; PTT 24.6 sec (22.9-36.1); Prothrombin Time 14.3 sec (12.0-14.7)
[2023-05-24] MEDS ORDERED: Calcium Carbonate 500 MG ChewTAB PO PRN ×2 (01:50→02:05)
[2023-05-24] MEDS ORDERED: Ondansetron ODT 4 MG TAB PO PRN (01:50)
[2023-05-24] MEDS ORDERED: Senokot S 8.6-50 MG TAB PO PRN (01:50)
[2023-05-24 01:59] LABS: Lactic Acid 3.3 mmol/L (0.5-2.2)
[2023-05-24] MEDS ORDERED: Heparin 10,000 UNITS/ 10 ML VIAL SLOW IVP SCH (02:00)
[2023-05-24] MEDS ORDERED: Lorazepam 2 MG/ML VIAL SLOW IVP PRN (02:05)
[2023-05-24 03:07] LABS: Hematocrit 42.1 % (36.0-47.0); Hemoglobin 13.4 g/dL (12.0-16.0); Platelet Count 162 10x3/uL (130-400)
[2023-05-24 03:24] LABS: PTT 176.4 sec (22.9-36.1)
[2023-05-24 05:59] LABS: #Basophils 0.1 thou/uL (0.0-0.2); #Eosinphils 0.2 thou/uL (0.0-0.7); #Monocytes 0.6 thou/uL (0.11-0.59); #Neutrophils 7.1 thou/uL (1.40-6.50); %Basophils 0.7 % (0.0-1.0); %Eosinophils 1.8 % (0.0-10.0); %Lymphocytes 15.6 % (21.0-51.0); %Monocytes 6.4 % (0.0-10.0); %Neutrophils 72.9 % (42.0-75.0); Hematocrit 43.8 % (36.0-47.0); Mean Corpuscular Hemoglobin 28.3 pg (27.0-31.0); Mean Platelet Volume 9.9 fL (7.4-10.4); Platelet Count 158 10x3/uL (130-400); RBC Distribution Width 16.9 % (11.5-14.5); Red Blood Cell (RBC) Count 4.95 mill/uL (4.20-5.40); White Blood Cell (WBC) Count 9.7 10x3/uL (4.8-10.8)
[2023-05-24 06:31] LABS: Critical Call Chem Troponin I RESULT DECREASING; Troponin I 0.351 ng/mL (< 0.028)
[2023-05-24 06:34] LABS: Anion Gap 13 mmol/L (10-20); BUN (Urea Nitrogen) 25 mg/dL (9.8-20.1); Calc. Creatinine Clearance 86 mL/min (70-130); Calcium 8.2 mg/dL (7.8-10.44); Carbon Dioxide 26 mmol/L (23-31); Chloride 107 mmol/L (98-107); Estimated GFR 98; Glucose 79 mg/dL (83-110); Sodium 142 mmol/L (136-145)
[2023-05-24 06:35] LABS: Mean Corpuscular Volume 88.5 fl (78.0-98.0)
[2023-05-24] MEDS ORDERED: Budesonide 0.5 MG/2 ML NEB ONE (07:13)
[2023-05-24] MEDS: Budesonide 0.5 MG/2 ML NEB NEB SCH ×2 (07:16→19:59)
[2023-05-24 07:21] LABS: PTT 220.6 sec (22.9-36.1)
[2023-05-24] MEDS: Heparin 25,000 units/D5W 500 ML IVPB SCH ×3 (07:28→17:39)
[2023-05-24] MEDS: Gabapentin 300 MG CAP PO SCH ×2 (08:00→14:35)
[2023-05-24] MEDS ORDERED: Famotidine 20 MG TAB ONE (08:52)
[2023-05-24] MEDS ORDERED: Digoxin 0.125 MG TAB ONE (08:52)
[2023-05-24] MEDS ORDERED: Famotidine/PF 20 mg/2ml Vial SLOW IVP SCH (09:00)
[2023-05-24] MEDS: dilTIAZem 30 MG TAB PO SCH ×2 (09:41→22:27)
[2023-05-24] MEDS: Digoxin 0.125 MG TAB PO SCH (09:41)
[2023-05-24] MEDS: Magnesium Oxide 400 MG TAB PO SCH (09:41)
[2023-05-24] MEDS: Famotidine 20 MG TAB PO SCH ×2 (09:41→22:27)
[2023-05-24] MEDS ORDERED: Ondansetron PF 4 MG/2 ML Vial ONE (10:07)
[2023-05-24] MEDS ORDERED: LORazepam 2 MG/ML SYR.(CARPUJECT) ONE (10:07)
[2023-05-24] MEDS ORDERED: Cefepime 1 GM VIAL ONE (11:44)
[2023-05-24] MEDS: Cefepime 1 GM in Sodium Chloride 0.9% 100 ML IVPB SCH (11:49)
[2023-05-24 16:28] VITALS: BMI 18.1
[2023-05-24] MEDS: Ondansetron PF 4 MG/2 ML Vial IVP PRN (16:53)
[2023-05-24] MEDS: Lorazepam 1 MG TAB PO PRN (17:08)
[2023-05-24] MEDS ORDERED: Promethazine HCl 12.5 MG in Sodium Chloride 0.9% 50 ML IVPB SCH (21:45)
[2023-05-24] MEDS: Mirtazapine 15 MG TAB PO SCH (22:27)
[2023-05-24] MEDS: Dexamethasone 4 MG TAB PO SCH (22:27)
[2023-05-24] MEDS: Phenytoin Extended Release 100 MG CAP PO SCH (22:28)
[2023-05-24] MEDS: Melatonin 3 MG TAB PO SCH (22:28)
[2023-05-25] MEDS: Cefepime 1 GM in Sodium Chloride 0.9% 100 ML IVPB SCH ×3 (00:05→21:47)
[2023-05-25] MEDS: Heparin 25,000 units/D5W 500 ML IVPB SCH (05:09)
[2023-05-25] MEDS: Budesonide 0.5 MG/2 ML NEB NEB SCH ×2 (07:43→19:21)
[2023-05-25] MEDS: Digoxin 0.125 MG TAB PO SCH (09:37)
[2023-05-25] MEDS: Famotidine 20 MG TAB PO SCH ×2 (09:37→21:47)
[2023-05-25] MEDS: dilTIAZem 30 MG TAB PO SCH ×2 (09:37→21:45)
[2023-05-25] MEDS: Magnesium Oxide 400 MG TAB PO SCH (09:38)
[2023-05-25] MEDS: Dexamethasone 4 MG TAB PO SCH ×2 (09:38→21:47)
[2023-05-25] MEDS: Multivit, Therapeutic 1 TAB PO SCH (09:39)
[2023-05-25] MEDS: Ondansetron PF 4 MG/2 ML Vial IVP PRN ×2 (10:45→21:48)
[2023-05-25] MEDS: Lorazepam 1 MG TAB PO PRN ×2 (12:25→21:46)
[2023-05-25] MEDS: Phenytoin Extended Release 100 MG CAP PO SCH (21:45)
[2023-05-25] MEDS: Melatonin 3 MG TAB PO SCH (21:45)
[2023-05-25] MEDS: Mirtazapine 15 MG TAB PO SCH (21:47)
[2023-05-26 04:12] LABS: Hematocrit 45.7 % (36.0-47.0); Hemoglobin 14.8 g/dL (12.0-16.0); Platelet Count 184 10x3/uL (130-400)
[2023-05-26] MEDS: Budesonide 0.5 MG/2 ML NEB NEB SCH ×2 (08:07→19:38)
[2023-05-26] MEDS: Multivit, Therapeutic 1 TAB PO SCH (10:13)
[2023-05-26] MEDS: Digoxin 0.125 MG TAB PO SCH (10:18)
[2023-05-26] MEDS: dilTIAZem 30 MG TAB PO SCH ×2 (10:18→22:44)
[2023-05-26] MEDS: Dexamethasone 4 MG TAB PO SCH ×2 (10:19→22:43)
[2023-05-26] MEDS: Cefepime 1 GM in Sodium Chloride 0.9% 100 ML IVPB SCH ×2 (10:19→23:01)
[2023-05-26] MEDS: Famotidine 20 MG TAB PO SCH ×2 (10:20→22:43)
[2023-05-26] MEDS: Magnesium Oxide 400 MG TAB PO SCH (10:20)
[2023-05-26] MEDS: Lorazepam 1 MG TAB PO PRN ×2 (11:39→22:42)
[2023-05-26] MEDS: Ondansetron PF 4 MG/2 ML Vial IVP PRN ×2 (11:39→22:47)
[2023-05-26] MEDS ORDERED: Promethazine HCl 25 MG in Sodium Chloride 0.9% 50 ML IVPB SCH (13:00)
[2023-05-26] MEDS: Heparin 25,000 units/D5W 500 ML IVPB SCH (13:17)
[2023-05-26] MEDS ORDERED: hydrOXYzine 25 MG TAB PO PRN (16:30)
[2023-05-26] MEDS: Phenytoin Extended Release 100 MG CAP PO SCH (22:42)
[2023-05-26] MEDS: Melatonin 3 MG TAB PO SCH (22:43)
[2023-05-26] MEDS: Loratadine 10 MG TAB PO SCH (22:43)
[2023-05-26] MEDS: Mirtazapine 15 MG TAB PO SCH (22:44)
[2023-05-27 04:28] LABS: #Monocytes 0.3 thou/uL (0.11-0.59); #Neutrophils 9.4 thou/uL (1.40-6.50); %Basophils 0.2 % (0.0-1.0); %Eosinophils 0.3 % (0.0-10.0); %Lymphocytes 6.5 % (21.0-51.0); %Monocytes 2.5 % (0.0-10.0); %Neutrophils 89.3 % (42.0-75.0); Hematocrit 44.6 % (36.0-47.0); Hemoglobin 14.3 g/dL (12.0-16.0); Mean Corpuscular HGB CONC 32.1 g/dL (32.0-36.0); Mean Corpuscular Hemoglobin 28.7 pg (27.0-31.0); Mean Corpuscular Volume 89.4 fl (78.0-98.0); Mean Platelet Volume 10.3 fL (7.4-10.4); Platelet Count 184 10x3/uL (130-400); RBC Distribution Width 17.2 % (11.5-14.5); Red Blood Cell (RBC) Count 4.99 mill/uL (4.20-5.40); White Blood Cell (WBC) Count 10.6 10x3/uL (4.8-10.8)
[2023-05-27 05:04] LABS: Anion Gap 15 mmol/L (10-20); BUN (Urea Nitrogen) 22 mg/dL (9.8-20.1); Calc. Creatinine Clearance 79 mL/min (70-130); Calcium 8.9 mg/dL (7.8-10.44); Carbon Dioxide 27 mmol/L (23-31); Chloride 103 mmol/L (98-107); Estimated GFR 96; Glucose 113 mg/dL (83-110); Potassium 4.6 mmol/L (3.5-5.1); Sodium 140 mmol/L (136-145)
[2023-05-27] MEDS: Budesonide 0.5 MG/2 ML NEB NEB SCH ×2 (07:13→19:09)
[2023-05-27] MEDS: Digoxin 0.125 MG TAB PO SCH (09:03)
[2023-05-27] MEDS: Multivit, Therapeutic 1 TAB PO SCH (09:04)
[2023-05-27] MEDS: Dexamethasone 4 MG TAB PO SCH ×2 (09:04→22:20)
[2023-05-27] MEDS: Loratadine 10 MG TAB PO SCH ×2 (09:04→22:20)
[2023-05-27] MEDS: Famotidine 20 MG TAB PO SCH ×2 (09:04→22:20)
[2023-05-27] MEDS: Magnesium Oxide 400 MG TAB PO SCH (09:04)
[2023-05-27] MEDS: dilTIAZem 30 MG TAB PO SCH ×2 (09:04→22:19)
[2023-05-27] MEDS: Heparin 25,000 units/D5W 500 ML IVPB SCH (12:03)
[2023-05-27] MEDS: Cefepime 1 GM in Sodium Chloride 0.9% 100 ML IVPB SCH (12:03)
[2023-05-27] MEDS: Cefepime 2 GM in Sodium Chloride 0.9% 100 ML IVPB SCH (15:38)
[2023-05-27] MEDS: ALPRAZolam 0.25 MG TAB PO PRN (17:21)
[2023-05-27] MEDS: Ondansetron PF 4 MG/2 ML Vial IVP PRN (17:21)
[2023-05-27] MEDS: Phenytoin Extended Release 100 MG CAP PO SCH (22:19)
[2023-05-27] MEDS: Melatonin 3 MG TAB PO SCH (22:20)
[2023-05-27] MEDS: Mirtazapine 15 MG TAB PO SCH (22:20)
[2023-05-28] MEDS: Cefepime 2 GM in Sodium Chloride 0.9% 100 ML IVPB SCH ×2 (01:16→14:16)
[2023-05-28 02:10] LABS: Hematocrit 43.7 % (36.0-47.0); Hemoglobin 14.3 g/dL (12.0-16.0); Platelet Count 194 10x3/uL (130-400)
[2023-05-28] MEDS: Budesonide 0.5 MG/2 ML NEB NEB SCH ×2 (07:51→19:27)
[2023-05-28] MEDS: Famotidine 20 MG TAB PO SCH ×2 (10:36→21:49)
[2023-05-28] MEDS: Magnesium Oxide 400 MG TAB PO SCH (10:37)
[2023-05-28] MEDS: Digoxin 0.125 MG TAB PO SCH (10:37)
[2023-05-28] MEDS: Loratadine 10 MG TAB PO SCH ×2 (10:37→21:49)
[2023-05-28] MEDS: Dexamethasone 4 MG TAB PO SCH ×2 (10:37→21:49)
[2023-05-28] MEDS: dilTIAZem 30 MG TAB PO SCH ×2 (10:38→21:49)
[2023-05-28] MEDS: Multivit, Therapeutic 1 TAB PO SCH (10:38)
[2023-05-28] MEDS ORDERED: Lidocaine 2% PF 5 ML VIAL ONE (16:40)
[2023-05-28] MEDS ORDERED: Bupivacaine HCl 0.5%/Epinephrine 1:200,000/PF 30 ml Vial ONE (16:40)
[2023-05-28] MEDS ORDERED: fentaNYL PF 100 MCG/2 ML SYRINGE ONE (16:56)
[2023-05-28] MEDS ORDERED: Ondansetron PF 4 MG/2 ML Vial ONE (16:59)
[2023-05-28] MEDS ORDERED: Ondansetron HCl/PF 4 MG/2 ML Vial IVP PRN (18:12)
[2023-05-28] MEDS: Melatonin 3 MG TAB PO SCH (21:49)
[2023-05-28] MEDS: Mirtazapine 15 MG TAB PO SCH (21:49)
[2023-05-28] MEDS: Acetaminophen 325 MG TAB PO PRN (21:49)
[2023-05-28] MEDS: Phenytoin Extended Release 100 MG CAP PO SCH (21:49)
[2023-05-28] MEDS ORDERED: Heparin 10,000 UNITS/ 10 ML VIAL SLOW IVP SCH (22:15)
[2023-05-28] MEDS: Heparin 25,000 units/D5W 500 ML IVPB SCH ×2 (22:51→23:15)
[2023-05-29] MEDS: Cefepime 2 GM in Sodium Chloride 0.9% 100 ML IVPB SCH ×2 (01:38→13:59)
[2023-05-29] MEDS: Acetaminophen 325 MG TAB PO PRN (03:52)
[2023-05-29] MEDS: Budesonide 0.5 MG/2 ML NEB NEB SCH ×2 (07:55→19:42)
[2023-05-29] MEDS ORDERED: Apixaban 5 MG TAB PO SCH (09:45)
[2023-05-29] MEDS: Digoxin 0.125 MG TAB PO SCH (10:23)
[2023-05-29] MEDS: Dexamethasone 4 MG TAB PO SCH ×2 (10:25→21:53)
[2023-05-29] MEDS: Multivit, Therapeutic 1 TAB PO SCH (10:25)
[2023-05-29] MEDS: dilTIAZem 30 MG TAB PO SCH ×2 (10:25→21:54)
[2023-05-29] MEDS: Loratadine 10 MG TAB PO SCH ×2 (10:26→21:55)
[2023-05-29] MEDS: Magnesium Oxide 400 MG TAB PO SCH (10:26)
[2023-05-29] MEDS: Famotidine 20 MG TAB PO SCH ×2 (10:26→21:53)
[2023-05-29] MEDS: ALPRAZolam 0.25 MG TAB PO PRN (20:40)
[2023-05-29] MEDS: Ondansetron PF 4 MG/2 ML Vial IVP PRN (20:40)
[2023-05-29] MEDS ORDERED: diphenhydrAMINE 25 MG CAP PO SCH (21:15)
[2023-05-29] MEDS: Phenytoin Extended Release 100 MG CAP PO SCH (21:52)
[2023-05-29] MEDS: Apixaban 5 MG TAB PO SCH (21:53)
[2023-05-29] MEDS: Melatonin 3 MG TAB PO SCH (21:55)
[2023-05-29] MEDS: Mirtazapine 15 MG TAB PO SCH (21:55)
[2023-05-30] MEDS: Cefepime 2 GM in Sodium Chloride 0.9% 100 ML IVPB SCH (00:57)
[2023-05-30 02:06] LABS: Hemoglobin 14.7 g/dL (12.0-16.0); Platelet Count 211 10x3/uL (130-400)
[2023-05-30 04:19] LABS: #Eosinphils 0.1 thou/uL (0.0-0.7); #Monocytes 0.4 thou/uL (0.11-0.59); #Neutrophils 9.7 thou/uL (1.40-6.50); %Basophils 0.3 % (0.0-1.0); %Eosinophils 0.8 % (0.0-10.0); %Lymphocytes 8.5 % (21.0-51.0); %Monocytes 3.7 % (0.0-10.0); Hematocrit 44.1 % (36.0-47.0); Hemoglobin 14.3 g/dL (12.0-16.0); Mean Corpuscular HGB CONC 32.4 g/dL (32.0-36.0); Mean Corpuscular Hemoglobin 29.2 pg (27.0-31.0); Mean Platelet Volume 10.3 fL (7.4-10.4); Platelet Count 217 10x3/uL (130-400); White Blood Cell (WBC) Count 11.4 10x3/uL (4.8-10.8)
[2023-05-30 04:52] LABS: Anion Gap 13 mmol/L (10-20); BUN (Urea Nitrogen) 25 mg/dL (9.8-20.1); Calc. Creatinine Clearance 78 mL/min (70-130); Carbon Dioxide 28 mmol/L (23-31); Chloride 101 mmol/L (98-107); Estimated GFR 96; Glucose 129 mg/dL (83-110); Potassium 4.9 mmol/L (3.5-5.1); Sodium 137 mmol/L (136-145)
[2023-05-30] MEDS: Budesonide 0.5 MG/2 ML NEB NEB SCH (07:15)
[2023-05-30] MEDS ORDERED: Hydrocortisone 1% Cream 30 GM TUBE TOP PRN (08:23)
[2023-05-30] MEDS ORDERED: diphenhydrAMINE 25 MG CAP PO PRN (08:24)
[2023-05-30 08:45] VITALS: BP 124/75; TEMP 97.7
[2023-05-30] MEDS: Multivit, Therapeutic 1 TAB PO SCH (09:00)
[2023-05-30] MEDS: Magnesium Oxide 400 MG TAB PO SCH (09:00)
[2023-05-30] MEDS: dilTIAZem 30 MG TAB PO SCH (09:01)
[2023-05-30] MEDS: Digoxin 0.125 MG TAB PO SCH (09:01)
[2023-05-30] MEDS: Loratadine 10 MG TAB PO SCH (09:02)
[2023-05-30] MEDS: Famotidine 20 MG TAB PO SCH (09:02)
[2023-05-30] MEDS: Apixaban 5 MG TAB PO SCH (11:01)
== END 2023-05-30 09:07 | disposition expired | DRG 166 ==
LOC: ERS 21:24 → ERHOLD 23:54 → OBSVTOIN 05-24 01:50 → 2NO 05-24 13:03
PROVIDERS: ADMIT Student in an Organized Health Care Education/Training Program; ATTEND Family Medicine
PROC: 4A043R1 Measurement of Venous Saturation, Peripheral, Percutaneous Approach (ICD-10-PCS; 2023-05-23)
PROC: 0JH60WZ Insertion of Totally Implantable Vascular Access Device into Chest Subcutaneous Tissue and Fascia, Open Approach (ICD-10-PCS; principal; 2023-05-24)
PROC: 02HV33Z Insertion of Infusion Device into Superior Vena Cava, Percutaneous Approach (ICD-10-PCS; 2023-05-24)
PROC: 5A0935A Assistance with Respiratory Ventilation, Less than 24 Consecutive Hours, High Flow/Velocity Cannula (ICD-10-PCS; 2023-05-24)
PROC: B548ZZA Ultrasonography of Superior Vena Cava, Guidance (ICD-10-PCS; 2023-05-24)
PROC: 0BH17EZ Insertion of Endotracheal Airway into Trachea, Via Natural or Artificial Opening (ICD-10-PCS; 2023-05-24)
PROC: 3E033XZ Introduction of Vasopressor into Peripheral Vein, Percutaneous Approach (ICD-10-PCS; 2023-05-28)
PROC: 5A12012 Performance of Cardiac Output, Single, Manual (ICD-10-PCS; 2023-05-30)
DX: I26.02 Saddle embolus of pulmonary artery with acute cor pulmonale (principal); I21.A1 Myocardial infarction type 2; J96.01 Acute respiratory failure with hypoxia; C34.01 Malignant neoplasm of right main bronchus; E87.20 Acidosis, unspecified; R65.10 Systemic inflammatory response syndrome (SIRS) of non-infectious origin without acute organ dysfunction; I82.403 Acute embolism and thrombosis of unspecified deep veins of lower extremity, bilateral; R04.2 Hemoptysis; Z68.1 Body mass index [BMI] 19.9 or less, adult; R64 Cachexia; C79.31 Secondary malignant neoplasm of brain; Z66 Do not resuscitate; I46.9 Cardiac arrest, cause unspecified; F12.10 Cannabis abuse, uncomplicated; R74.01 Elevation of levels of liver transaminase levels; J44.9 Chronic obstructive pulmonary disease, unspecified; I11.9 Hypertensive heart disease without heart failure; I27.20 Pulmonary hypertension, unspecified; F41.9 Anxiety disorder, unspecified; F32.A Depression, unspecified; K21.9 Gastro-esophageal reflux disease without esophagitis; R63.0 Anorexia; R54 Age-related physical debility; Z20.822 Contact with and (suspected) exposure to COVID-19; Z88.8 Allergy status to other drugs, medicaments and biological substances; Z79.899 Other long term (current) drug therapy; Z87.891 Personal history of nicotine dependence
CPT/HCPCS: 36415; 36416; 71045; 71275; 80048; 80053; 82553; 82805; 83605; 83880; 84484; 85014; 85018; 85025; 85049; 85610; 85730; 87040; 93005; 93306; 93970; 94640; 94760; 96365; 96366; 96367; 96375; C1788; J0692; J1642; J1644; J2001; J2060; J2405; J2550; J3370-JW; J3490; J7611; J7626; J8540; Q0162; Q9967